=== PATIENT | female | born 1985 | race Caucasian/White ===

== ENCOUNTER 2017-12-04 04:27 | Emergency (ER) | payer SELFPAY ==
[~2017-12-04] VITALS: Ht 152.4 cm; Wt 56.7 kg
--- OUTSIDE RECORDS SUMMARY | 2017-12-04 04:34 | XMS REPORT ---
Author Author VIKTOR OREILLY Organization [facility] Address [address] [place] [address] Care Team Providers Care Induction Heating Equipment Setter Name Role Phone VIKTOR OREILLY Unavailable PROBLEMS Unknown Problems ALLERGIES No Known Allergies ENCOUNTERS Encounter Location Date Diagnosis [facility] [address] [id number] [place] [address] Aug Acute nasopharyngitis J00 IMMUNIZATIONS No Known Immunizations SOCIAL HISTORY Never Assessed REASON FOR VISIT cough, Pt states having this cough for about 5 weeks., Pt coughing so hard it makes her vomit, she even vomited in her sleep. LEONIDAS Rob PLAN OF CARE Activity Details Follow Up prn Reason: VITAL SIGNS Height 61 in 2016-08-30 Weight 126.1 lbs 2016-08-30 Temperature 98.4 degrees Fahrenheit 2016-08-30 Heart Rate 98 bpm 2016-08-30 Respiratory Rate 20 2016-08-30 BMI 23.82 kg/m2 2016-08-30 Blood pressure systolic 120 mmHg 2016-08-30 Blood pressure diastolic 76 mmHg 2016-08-30 MEDICATIONS Medication Instructions Dosage Frequency Start Date End Date Duration Status Tessalon Perles 100 mg Orally Three times a day 1 capsule as needed 8h Aug, Aug, 07 days Active Azithromycin 250 MG Orally Once a day 2 tablets on the first day, then 1 tablet daily for 4 days 24h 5 day(s) Active RESULTS No Results PROCEDURES No Known procedures INSTRUCTIONS MEDICATIONS ADMINISTERED No Known Medications MEDICAL (GENERAL) HISTORY Type Description Date Surgical History section Hospitalization History child
--- OUTSIDE RECORDS SUMMARY | 2017-12-04 04:34 | XMS REPORT | CCD ---
Author Author JOE HUGGINS Organization Unknown Address [address] [address] [place], [place] [address] Care Team Providers Care Ticket Counter Name Role Phone HANDSHY ERLYNNETTE MD Attphys HANDSHY ER, LYNNETTE CAZARES Prisurg Vital Signs Unknown or Not Available. Allergies Allergy Code Allergy Type Reaction Status CELEXA 654544 Drug allergy Active Procedures Procedure Code Procedure Type Date US OB COMP<14 WK SINGLE OR FIRST 038662957 SNOMED CT 03/17 US OB TRANSVAGINAL 968525394 SNOMED CT 03/17/[address] 03/17/2015 TYPE AND Rh 67138045 SNOMED CT 03/17/2015 BETA HCG QUANTITATIVE 427120426 SNOMED CT 03/17/2015 COMPREHENSIVE METABOLIC PANEL 959454765 SNOMED CT 2014 CBC W/ AUTO DIFF (RFLX MAN DIFF IF IND) 8315770 SNOMED CT 03/17/2015 ^CBC W/AUTO DIFF 9187237 SNOMED CT 03/17/2015 History of Immunizations Immunization Code Date DTP 1987 DTP 1987 DTP 09/27/1990 DTP 07/26/1992 OPV 02 1987 OPV 1987 OPV 02 02/28/1988 OPV 02 07/26/1992 MMR 03 09/27/1990 MMR 03 07/26/1992 Td (adult), adsorbed 09 01/15/2003 Tdap 115 02/11/2012 Influenza, seasonal, injectable, preservative free 140 2011 Problems Problem Code Start Date Resolved Date Status FOOTLING BREECH PRESENTATION 307479072 Active SINGLE DELIVERY BY [id number] Active IUGR (INTRAUTERINE GROWTH RETARDATION) 57691018 Active , COMPLICATED 73001 Active SMALL FOR GESTATIONAL AGE 56348 Active Results BETA HCG QUANTITATIVE - Collect Date/Time: 03/17/2015 20:25 Test Name Code Test Result Test Units Test Ref Range BETA HCG QUANT 46858-2 30 MIU/ML COMPREHENSIVE METABOLIC PANEL - Collect Date/Time: 03/17/2015 20:25 Test Name Code Test Result Test Units Test Ref Range GLUCOSE 2345-7 86 MG/DL L=70 H=100 SODIUM 2951-2 140 MEQ/L L=135 H=148 POTASSIUM 2823-3 3.3 MEQ/L L=3.5 H=5.3 CHLORIDE 2075-0 104 MEQ/L L=96 H=110 CO2 2028-9 25 MEQ/L L=22 H=29 BUN 3094-0 8 MG/DL L=8 H=22 CREATININE 2160-0 0.7 MG/DL L=0.6 H=1.6 SGOT/AST 1920-8 29 IU/L L=10 H=40 SGPT/ALT 1742-6 47 IU/L L=8 H=54 ALK PHOS 6768-6 92 IU/L L=35 H=115 TOTAL PROTEIN 2885-2 7.2 G/DL L=5.5 H=8.5 ALBUMIN 1751-7 4.4 G/DL L=3.1 H=5.4 TOTAL BILI 1975-2 0.4 MG/DL L=0.0 H=1.5 CALCIUM 94045-4 9.3 MG/DL L=8.2 H=10.6 AGE 30 yrs GFR NonAA 100 GFR AA 121 eGFR >60 N/A eGFR AA* >60 N/A CBC W/ AUTO DIFF (RFLX MAN DIFF IF IND) - Collect Date/Time: 03/17/2015 20:25 Test Name Code Test Result Test Units Test Ref Range WBC 75210-6 8.3 TH/CMM L=4.5 H=10.8 RBC 789-8 4.39 ML/CMM L=4.20 H=5.40 HGB 718-7 13.2 G/DL L=12.0 H=16.0 HCT 4544-3 39.3 % L=37.0 H=47.0 MCV 90 FL L=81 H=99 MCH 30.1 PG L=27.0 H=33.0 MCHC 33.6 G/DL L=31.0 H=36.0 RDW SD 44 FL L=36 H=50 RDW CV 13.4 % L=0.0 H=14.8 MPV 10.0 FL L=9.3 H=12.5 PLT 777-3 322 TH/CMM L=130 H=440 NRBC# 0.00 TH/CMM L=0.00 H=0.00 NRBC% 0.0 /100WBC L=0.0 H=2.0 %NEUT 52.3 % %LYMP 38.5 % %MONO 6.1 % %EOS 2.9 % %BASO 0.2 % #NEUT 4.35 TH/CMM L=2.10 H=8.20 #LYMP 3.20 TH/CMM L=0.90 H=5.20 #MONO 0.51 TH/CMM L=0.16 H=1.00 #EOS 0.24 TH/CMM L=0.00 H=0.80 #BASO 0.02 TH/CMM L=0.00 H=0.20 MANUAL DIFF NOT IND N/A PT/PTT - Collect Date/Time: 03/17/2015 20:25 Test Name Code Test Result Test Units Test Ref Range PROTIME 40991-8 10.5 SEC L=9.9 H=11.9 INR 1.0 PTT 3173-2 31.1 SEC L=22.2 H=37.2 TYPE AND Rh - Collect Date/Time: 03/17/2015 20:25 Test Name Code Test Result Test Units Test Ref Range ABO/Rh Type O Negative N/A Active Medications Medication Code Dose Units Frequency Route Modification Start Date/Time Ibuprofen 800MG Oral Tablet 011554 800 MG Q8H PO 02/11/2012 08:35 Prescription Detail 800 MG PO Q8H Oxycodone And Acetaminophen 325MG-5MG Oral Tablet 0701819 1 TAB NEEDED EVERY 6 HR PO 02/11/2012 08:35 Prescription Detail 1 TAB PO NEEDED EVERY 6 HR Oral Tablet [id number] 1 EACH DAILY ORAL 02/11/2012 08:35 Prescription Detail 1 EACH ORAL DAILY Medications Administered During Visit Unknown or Not Available. Encounters Encounter Diagnosis Diagnosis Code Start Date Spontaneous without complication [id number] 03/17/2015 Social History Smoking Status Code Start Date End Date Current every day smoker 748148170 Patient Decision Aids Unknown or Not Available. Discharge Instructions You were admitted to [facility] on 03/17[facility]2015 with a principal diagnosis of Spontaneous without complication . You were discharged from [facility] on 03/17/2015. Should you have any questions prior to discharge, please contact a member of your healthcare team. If you have left the hospital and have any questions, please contact your primary care physician. Chief Complaint and Reason For Visit Chief Complaint Date of Onset VAGINAL BLEEDING Function Status Unknown or Not Available. Plan of Care Unknown or Not Available. Referral/Transition of Care Unknown or Not Available.
--- OUTSIDE RECORDS SUMMARY | 2017-12-04 04:35 | XMS REPORT ---
Author Author Juan Joaquin [facility] Address [address] [place], [place] [address] Care Team Providers Care Academic Advising Director Name Role Phone Juan Joaquin PCP Juan Joaquin PreferredProvider Allergies and Adverse Reactions Name Reaction Notes NO KNOWN DRUG ALLERGIES Plan of Treatment Planned Activity Comments Planned Date Planned Time Plan/Goal Liver function panel 11/01/2016 12:00 AM Medications Name Start Date Expiration Date SIG Comments ranitidine HCl 150 mg oral capsule 11/22/2011 06/19/2012 take 1 capsule (150 mg) by oral route 2 times per day for 30 days Mucinex 600 mg oral tablet extended release 12hr 01/04/2012 take 1 tablet (600 mg) by oral route every 12 hours Zithromax Z-Braden 250 mg oral tablet 01/11/2012 01/16/2012 take 2 tablets ( 500 mg) by oral route once daily for 1 day then 1 tablet (250 mg) by oral route once daily for 4 days potassium chloride 20 mEq oral tablet,ER particles/crystals 01/24/20122011 take 1 tablet (20 meq) by oral route once daily with food for 3 days Claritin-D 12 Hour 5-120 mg oral tablet extended release 12 hr 12/27/2013 take 1 tablet by oral route 2 times per day for 15 days Medrol (Braden) 4 mg oral tablets,dose pack 09/12/2017 09/24/2017 take as directed for 6 days Augmentin 875-125 mg oral tablet 09/12/2017 09/19/2017 take 1 tablet by oral route every 12 hours for 7 days Discontinued Name Start Date Discontinued Date SIG Comments TriAdvance 90-1-50 mg oral tablet 07/25/2011 08/23/2011 take 1 tablet by oral route once daily for 30 days Plus 27-1 mg oral tablet 08/23/2011 08/14/2012 take 1 tablet by oral route once daily Tessalon Perles 100 mg oral capsule 01/04/2012 08/14/2012 take 1 capsule ( 100 mg) by oral route every 4 hours as needed Zofran ODT 4 mg oral tablet,disintegrating 01/29/2012 08/14/2012 1 PO q 8 hrs prn nausea Prevacid 15 mg oral capsule,delayed release(DR/EC) 01/30/2012 08/14/2012 take 1 capsule by oral route daily Symbicort 160-4.5 mcg/actuation inhalation HFA aerosol inhaler 09/06/201609/12 inhale 2 puffs by inhalation route 2 times per day in the morning and evening Problem List Description Status Onset Hepatitis C Infection Active Vital Signs Date Time BP-Sys(mm[Hg] BP-Sarah(mm[Hg]) HR(bpm) RR(rpm) Temp WT HT HC BMI BSA BMI Percentile O2 Sat(%) 09/12/2017 9:09:00 AM 110 mmHg 72 mmHg 69 bpm 16 rpm 98.1 F 144 lbs 62 in 26.3377 kg/m 1.6904 m 99 % 11/01/2016 10:14:00 AM 102 mmHg 70 mmHg 96 bpm 18 rpm 97.2 F 121 lbs 62 in 22.13 kg/m2 1.55 m2 100 % 09/06/2016 9:44:00 AM 112 mmHg 72 mmHg 85 bpm 16 rpm 96.5 F 120 lbs 62 in 21.9481 kg/m 1.5431 m 100 % 12/27/2013 1:36:00 PM 100 mmHg 60 mmHg 124 bpm 16 rpm 99.9 F 115 lbs 62 in 21.03 kg/m2 1.51 m2 99 % 10/23/2012 3:18:00 PM 100 mmHg 73 mmHg 72 bpm 20 rpm 97.3 F 135 lbs 62 in 24.6916 kg/m 1.6367 m 98 % 10/10/2012 3:17:00 PM 102 mmHg 74 mmHg 77 bpm 18 rpm 135 lbs 62 in 24.69 kg/m2 1.64 m2 98 % 10/03/2012 3:28:00 PM 100 mmHg 84 mmHg 78 bpm 18 rpm 97.3 F 135 lbs 62 in 24.6916 kg/m 1.6367 m 99 % 09/19/2012 8:08:00 AM 85 bpm 20 rpm 97.2 F 138.6 lbs 62 in 25.35 kg/m2 1.66 m2 97 % 08/14/2012 11:15:00 AM 105 mmHg 68 mmHg 89 bpm 96.6 F 140 lbs 62 in 25.6061 kg/m 1.6667 m 07/25/2011 11:18:00 AM 119 mmHg 70 mmHg 89 bpm 136 lbs 62 in 24.87 kg/m2 1.64 m2 10/07/2010 11:20:00 AM 118 mmHg 60 mmHg 96 bpm 97.7 F 131.375 lbs 98 % 06/27/2010 3:06:00 PM 90 mmHg 60 mmHg 72 bpm 18 rpm 97.8 F 123 lbs 06/22/2010 10:22:00 AM 115 mmHg 70 mmHg 86 bpm 18 rpm 96.7 F 123.5 lbs 100 % 12/31/2009 9:50:00 AM 90 mmHg 68 mmHg 75 bpm 97.3 F 125.25 lbs 99 % 12/03/2009 9:49:00 AM 105 mmHg 60 mmHg 103 bpm 97.9 F 123.125 lbs 100 % 11/30/2009 2:29:00 PM 100 mmHg 60 mmHg 83 bpm 18 rpm 97.81 F 122 lbs 100 % 11/16/2009 8:20:00 AM 110 mmHg 68 mmHg 72 bpm 16 rpm 98 F 124.25 lbs 62 in 22.7254 kg/m 1.5702 m Social History Name Description Comments Single Hx of substance use Former methamphetamines Alcohol Never Tobacco Current every day smoker [facility] History of Procedures Date Ordered Description Order Status 07/31/2011 12:00 AM URINE TEST Reviewed 07/25/2011 12:00 AM CYTOPATH C/V THIN LAYER Reviewed 07/25/2011 12:00 AM SPECIMEN HANDLING OFFICE-LAB Reviewed 07/25/2011 12:00 AM N.GONORRHOEAE DNA AMP PROB Reviewed 07/25/2011 12:00 AM CHLAMYDIA CULTURE Reviewed 07/25/2011 12:00 AM OBSTETRIC PANEL Reviewed 07/25/2011 12:00 AM HIV-1ANTIBODY Reviewed 07/25/2011 12:00 AM URINALYSIS AUTO W/SCOPE Reviewed 07/25/2011 12:00 AM OB US < 14 WKS SINGLE FETUS Reviewed 07/25/2011 12:00 AM HEPATITIS C AB TEST Reviewed 07/25/2011 12:00 AM HEPATITIS C REVRS [id number] Reviewed 07/25/2011 12:00 AM COMPREHEN METABOLIC PANEL Reviewed 07/27/2011 12:00 AM COMPREHEN METABOLIC PANEL Reviewed 07/27/2011 12:00 AM PROTHROMBIN TIME Reviewed 07/27/2011 12:00 AM THROMBOPLASTIN TIME PARTIAL Reviewed 08/02/2011 12:00 AM IRON BINDING TEST Reviewed 08/02/2011 12:00 AM ASSAY OF FERRITIN Reviewed 08/02/2011 12:00 AM ASSAY OF TRANSFERRIN Reviewed 08/02/2011 12:00 AM ASSAY OF IRON Reviewed 08/02/2011 12:00 AM GENOTYPE DNA/RNA HEP C Reviewed 08/02/2011 12:00 AM HEPATITIS A TOTAL ANTIBODY Reviewed 08/02/2011 12:00 AM [id number] TOTAL Reviewed 08/02/2011 12:00 AM ALPHA-FETOPROTEIN SERUM Reviewed 09/07/2011 12:00 AM COMPREHEN METABOLIC PANEL Reviewed 10/09/2011 12:00 AM COMPREHEN METABOLIC PANEL Reviewed 10/09/2011 12:00 AM ALPHA-FETOPROTEIN SERUM Reviewed 10/09/2011 12:00 AM Urine drug screen Reviewed 10/23/2011 12:00 AM OB US >/=14 WKS SNGL FETUS Reviewed 09/06/2016 12:00 AM Rocephin 1 gram Injection Reviewed 09/06/2016 12:00 AM Decadron 8mg Injection Reviewed 09/06/2016 12:00 AM Depo-Medrol 80mg Injection Reviewed 12/01/2011 12:00 AM OB US >/=14 WKS SNGL FETUS Reviewed 11/22/2011 12:00 AM COMPREHEN METABOLIC PANEL Reviewed 12/04/2011 12:00 AM BIOPHYS PROFIL W/O NST Reviewed 12/04/2011 12:00 AM OB US LIMITED FETUS(S) Reviewed 12/04/2011 12:00 AM CMV ANTIBODY Reviewed 12/04/2011 12:00 AM VARICELLA-ZOSTER ANTIBODY Reviewed 12/04/2011 12:00 AM VARICELLA-ZOSTER ANTIBODY Reviewed 12/04/2011 12:00 AM PARVOVIRUS ANTIBODY Reviewed 12/04/2011 12:00 AM Hepatitis C RNA Quantitative Reviewed 12/04/2011 12:00 AM OB US >/=14 WKS SNGL FETUS Reviewed 12/04/2011 12:00 AM BIOPHYS PROFIL W/O NST Reviewed 12/28/2011 12:00 AM BIOPHYS PROFILE W/NST Reviewed 12/28/2011 12:00 AM AMNIOTIC FLUID SCAN Reviewed 01/01/2012 12:00 AM Urine drug screen Reviewed 01/11/2012 12:00 AM OB US >/=14 WKS SNGL FETUS Reviewed 01/11/2012 12:00 AM INFLUENZA A/B AG EIA Reviewed 01/23/2012 12:00 AM COMPREHEN METABOLIC PANEL Reviewed 01/23/2012 12:00 AM HEPATITIS C REVRS TRNSCRPJ Reviewed 02/08/2012 12:00 AM OB US >/=14 WKS SNGL FETUS Reviewed 02/01/2012 12:00 AM COMPREHEN METABOLIC PANEL Reviewed 02/01/2012 12:00 AM LACTATE (LD) (LDH) ENZYME Reviewed 02/01/2012 12:00 AM HIV-1ANTIBODY Reviewed 02/08/2012 12:00 AM CULTURE OTHR SPECIMN AEROBIC Reviewed 07/12/2017 12:00 AM MRI BRAIN STEM W/O & W/DYE Returned 09/12/2017 12:00 AM MRI BRAIN STEM W/O & W/DYE Returned 08/14/2012 12:00 AM CYTOPATH TBS C/V MANUAL Reviewed 08/14/2012 12:00 AM SPECIMEN HANDLING OFFICE-LAB Reviewed 08/14/2012 12:00 AM CHYLMD TRACH DNA AMP PROBE Reviewed 08/14/2012 12:00 AM N.GONORRHOEAE DNA AMP PROB Reviewed 08/14/2012 12:00 AM HIV-1ANTIBODY Reviewed 08/14/2012 12:00 AM SYPHILIS TEST NON-TREP QUAL Reviewed 08/14/2012 12:00 AM HEPATITIS B SURFACE AG EIA Reviewed 08/14/2012 12:00 AM COMPREHEN METABOLIC PANEL Reviewed 08/14/2012 12:00 AM HEPATITIS C REVRS TRNSCRPJ Reviewed 10/10/2012 12:00 AM MUSCLE TEST 2 LIMBS Reviewed 10/10/2012 12:00 AM Wrist Support Reviewed 11/30/2009 12:00 AM OBSTETRIC PANEL Reviewed 11/30/2009 12:00 AM HIV-1ANTIBODY Reviewed 11/30/2009 12:00 AM URINALYSIS NONAUTO W/SCOPE Reviewed 11/30/2009 12:00 AM URINE TEST Reviewed 12/31/2009 12:00 AM CHORIONIC GONADOTROPIN TEST Reviewed 01/03/2010 12:00 AM TRANSVAGINAL US OBSTETRIC Reviewed 06/22/2010 12:00 AM COMPREHEN METABOLIC PANEL Reviewed 06/22/2010 12:00 AM ASSAY OF AMYLASE Reviewed 06/22/2010 12:00 AM ASSAY ALKALINE PHOSPHATASE Reviewed 06/22/2010 12:00 AM COMPLETE CBC W/AUTO DIFF WBC Reviewed 06/27/2010 12:00 AM PROTHROMBIN TIME Reviewed Results Summary Date and Description Results 12/31/2009 10:32 AM BETA HCG QUANT 30810.51 06/22/2010 12:02 PM AMYLASE 34 IU/LWBC 9.5 RBC 4.84 HGB 15.10 g/dLHCT 43.60 % MCV 90.0 fLMCH 31.20 pgMCHC 34.60 g/dLRDW SD 43 RDW CV 12.90 %MPV 11.20 fLPLT 253 NRBC# 0.00 NRBC% 0.0 %NEUT 67.40 %%LYMP 25.90 %%MONO 4.80 %%EOS 1.70 %%BASO 0.20 %#NEUT 6.39 #LYMP 2.45 #MONO 0.45 #EOS 0.16 #BASO 0.02 MANUAL DIFF NOT IND GLUCOSE 105.0 mg/dLSODIUM 139.0 mmol/LPOTASSIUM 3.60 mmol/LCHLORIDE 101.0 mmol/ LCO2 26.0 mmol/LBUN 6.0 mg/dLCREATININE 0.70 mg/dLSGOT/AST 56.0 IU/LSGPT/ALT 112.0 IU/LALK PHOS 101.0 IU/LTOTAL PROTEIN 7.80 g/dLALBUMIN 4.60 g/dLTOTAL BILI 0.60 mg/dLCALCIUM 9.70 mg/dLAGE 25 GFR NonAA 104 GFR AA 126 eGFR >60 mL/min/ 1.73 m2eGFR AA* >60 06/27/2010 3:50 PM PROTIME 10.70 secsINR 1.1 07/25/2011 12:35 PM WBC 8.0 RBC 4.50 HGB 13.60 g/dLHCT 39.30 %MCV 87.0 fLMCH 30.20 pgMCHC 34.60 g/dLRDW SD 42 RDW CV 13.10 %MPV 10.40 fLPLT 239 NRBC# 0.00 NRBC% 0.0 %NEUT 56.30 %%LYMP 35.80 %%MONO 6.50 %%EOS 1.10 %%BASO 0.30 %#NEUT 4.47 #LYMP 2.85 #MONO 0.52 #EOS 0.09 #BASO 0.02 MANUAL DIFF NOT IND COLOR YELLOW APPEARANCE CLEAR SPEC GRAV 1.010 pH 6.5 PROTEIN NEGATIVE GLUCOSE NEGATIVE KETONE NEGATIVE BILIRUBIN NEGATIVE BLOOD NEGATIVE NITRITE NEGATIVE LEUK SCREEN NEGATIVE WBC/HPF NEGATIVE RBC/HPF NEGATIVE CASTS/LPF NEGATIVE CRYSTALS TRACE AMORPH MUCOUS THRDS NEGATIVE BACTERIA NEGATIVE EPITH CELLS NEGATIVE TRICHOMONAS NEGATIVE YEAST NEGATIVE CULT ORDERED YES GLUCOSE 81.0 mg/ dLSODIUM 135.0 mmol/LPOTASSIUM 3.60 mmol/LCHLORIDE 103.0 mmol/LCO2 23.0 mmol/ LBUN 4.0 mg/dLCREATININE 0.60 mg/dLSGOT/AST 69.0 IU/LSGPT/ALT 159.0 IU/LALK PHOS 84.0 IU/LTOTAL PROTEIN 7.30 g/dLALBUMIN 4.30 g/dLTOTAL BILI 0.60 mg/ dLCALCIUM 9.40 mg/dLAGE 26 GFR NonAA 123 GFR AA 149 eGFR 60 eGFR AA* 60 09/07/2011 4:45 PM GLUCOSE 60.0 mg/dLSODIUM 138.0 mmol/LPOTASSIUM 3.60 mmol/ LCHLORIDE 104.0 mmol/LCO2 21.0 mmol/LBUN 5.0 mg/dLCREATININE 0.50 mg/dLSGOT/AST 27.0 IU/LSGPT/ALT 46.0 IU/LALK PHOS 77.0 IU/LTOTAL PROTEIN 7.0 g/dLALBUMIN 4.0 g /dLTOTAL BILI 0.30 mg/dLCALCIUM 9.20 mg/dLAGE 26 GFR NonAA 152 GFR AA 184 eGFR 60 eGFR AA* 60 10/09/2011 2:56 PM GLUCOSE 82.0 mg/dLSODIUM 137.0 mmol/LPOTASSIUM 3.90 mmol/ LCHLORIDE 106.0 mmol/LCO2 21.0 mmol/LBUN 3.0 mg/dLCREATININE 0.50 mg/dLSGOT/AST 20.0 IU/LSGPT/ALT 24.0 IU/LALK PHOS 66.0 IU/LTOTAL PROTEIN 6.50 g/dLALBUMIN 3.50 g/dLTOTAL BILI 0.30 mg/dLCALCIUM 8.70 mg/dLAGE 26 GFR NonAA 152 GFR AA 184 eGFR 60 eGFR AA* 60 11/22/2011 10:48 AM GLUCOSE 122.0 mg/dLSODIUM 137.0 mmol/LPOTASSIUM 3.50 mmol/ LCHLORIDE 107.0 mmol/LCO2 21.0 mmol/LBUN 4.0 mg/dLCREATININE 0.50 mg/dLSGOT/AST 15.0 IU/LSGPT/ALT 15.0 IU/LALK PHOS 83.0 IU/LTOTAL PROTEIN 5.60 g/dLALBUMIN 3.10 g/dLTOTAL BILI 0.20 mg/dLCALCIUM 8.60 mg/dLAGE 26 GFR NonAA 152 GFR AA 184 eGFR 60 eGFR AA* 60 01/11/2012 5:10 PM INFLUENZA A & B NO INFLUENZA A OR B DETECTED 01/23/2012 3:06 PM GLUCOSE 142.0 mg/dLSODIUM 136.0 mmol/LPOTASSIUM 3.20 mmol/ LCHLORIDE 108.0 mmol/LCO2 20.0 mmol/LBUN 3.0 mg/dLCREATININE 0.50 mg/dLSGOT/AST 20.0 IU/LSGPT/ALT 24.0 IU/LALK PHOS 127.0 IU/LTOTAL PROTEIN 5.60 g/dLALBUMIN 3.0 g/dLTOTAL BILI 0.20 mg/dLCALCIUM 8.30 mg/dLAGE 26 GFR NonAA 152 GFR AA 184 eGFR 60 eGFR AA* 60 02/01/2012 11:55 AM GLUCOSE 75.0 mg/dLSODIUM 139.0 mmol/LPOTASSIUM 3.70 mmol/ LCHLORIDE 107.0 mmol/LCO2 24.0 mmol/LBUN 4.0 mg/dLCREATININE 0.50 mg/dLSGOT/AST 21.0 IU/LSGPT/ALT 24.0 IU/LALK PHOS 137.0 IU/LTOTAL PROTEIN 6.10 g/dLALBUMIN 3.10 g/dLTOTAL BILI 0.20 mg/dLCALCIUM 8.60 mg/dLAGE 26 GFR NonAA 152 GFR AA 184 eGFR 60 eGFR AA* 60 LDH 148.0 IU/L 08/14/2012 12:38 PM HIV AG/AB COMBO 0.19 GLUCOSE 70.0 mg/dLSODIUM 141.0 mmol/ LPOTASSIUM 4.10 mmol/LCHLORIDE 106.0 mmol/LCO2 22.0 mmol/LBUN 8.0 mg/ dLCREATININE 0.80 mg/dLSGOT/AST 32.0 IU/LSGPT/ALT 86.0 IU/LALK PHOS 101.0 IU/ LTOTAL PROTEIN 7.60 g/dLALBUMIN 4.40 g/dLTOTAL BILI 0.80 mg/dLCALCIUM 10.20 mg/ dLAGE 27 GFR NonAA 87 GFR AA 105 eGFR 60 eGFR AA* 60 History Of Immunizations Name Date Admin Mfg Name Mfg Code Trade Name Lot# Route Inj Vis Given Vis Pub CVX Tdap 02/11/2012 Not Entered NE Not Entered Not Entered Not Entered 03/26/2017 999 History of Past Illness Name Date of Onset Comments Hepatitis C Infection Hepatitis C Infection Nov 16 2009 8:21AM test confirmed positive Nov 30 2009 2:51PM Hepatitis C Infection Nov 16 2009 9:56AM Hepatitis C Infection Dec 03 2009 10:04AM , High Risk Dec 31 2009 9:57AM , Complete Jan 03 2010 5:08PM Abdominal Pain Jun 22 2010 10:24AM Hepatitis C Infection Jun 22 2010 10:24AM pre-operative examination, unspecified Jun 27 2010 3:15PM Hepatitis C, chronic Jun 27 2010 3:07PM Abnormal liver function test Jun 27 2010 3:07PM , High Risk Oct 07 2010 11:26AM Vaginal Bleeding Oct 07 2010 11:26AM test confirmed positive Jul 25 2011 11:30AM Hepatitis C Infection Jul 25 2011 11:30AM Hepatitis C Infection Jul 27 2011 3:59PM Hepatitis C Infection Aug 02 2011 9:35AM Care, High Risk Sep 07 2011 4:40PM Hepatitis C Infection Oct 09 2011 2:20PM Tobacco Abuse Oct 09 2011 2:54PM , High Risk Oct 18 2011 11:23AM Uterine size date discrepancy; antepartum condition or complication Nov 22 2011 10:14AM Care, High Risk Nov 22 2011 10:14AM Hepatitis C Infection Nov 22 2011 10:14AM Small For Dates, Antepartum Dec 04 2011 11:06AM Care, High Risk Dec 04 2011 11:34AM Intrauterine Growth Retardation Dec 04 2011 11:34AM Intrauterine Growth Retardation Dec 04 2011 2:01PM Care, High Risk Dec 04 2011 2:01PM , High Risk Dec 25 2011 1:47PM Small For Dates, Antepartum Dec 25 2011 1:47PM Tobacco use disorder complicating , childbirth, or the puerperium; antepartum condition or complication Jan 01 2012 3:06PM Small For Dates, Antepartum Jan 01 2012 4:00PM Care, High Risk Jan 11 2012 4:50PM Cough Jan 11 2012 4:50PM Personal history of other diseases; other genital system and obstetric disorders; personal history of pre-term labor Jan 23 2012 2:54PM Hepatitis C Infection Jan 23 2012 2:54PM Intrauterine Growth Retardation Feb 01 2012 11:50AM Care, High Risk Feb 01 2012 11:50AM Hepatitis C Infection Feb 01 2012 11:50AM Group B Strep Screening, Feb 08 2012 10:02AM Gynecological Exam Aug 14 2012 11:24AM Hepatitis C Infection Aug 14 2012 11:24AM Bilateral Wrist pain Sep 19 2012 8:13AM Repetitive Use Injury Sep 19 2012 8:13AM Bilateral Wrist pain Oct 03 2012 3:33PM Repetitive Use Injury Oct 03 2012 3:33PM Bilateral Wrist pain Oct 10 2012 3:21PM Repetitive Use Injury Oct 10 2012 3:21PM Bilateral Wrist pain Oct 23 2012 3:22PM Repetitive Use Injury Oct 23 2012 3:22PM Frontal Sinusitis, Acute Dec 27 2013 1:36PM Bronchitis Sep 06 2016 9:46AM Hepatitis C Sep 06 2016 9:46AM STD exposure Nov 01 2016 10:25AM Hepatitis C Nov 01 2016 12:40PM Headache Jul 12 2017 11:45AM Optic neuritis Jul 12 2017 11:45AM Optic neuritis Sep 12 2017 9:14AM NELSON (headache) Sep 12 2017 9:14AM Payers Insurance Name Company Name Plan Name Plan Number Policy Number Policy Group Number Start Date [facility] Financial Assistance [facility] Financial [place] 50percent N/A [employer] - CMFHP [employer] -CMFHP [id number] N/A [employer] - RHC - CMFHP [employer] - C - CMFHP [id number] N/A [employer] - RHC - CMFHP [employer] - RHC - CMFHP [id number] N/A [place] [employer] [facility] [place] [employer] [id number] N/A [employer] - [place] State [place] [employer] - [place] [id number] N/A [facility] [id number] N/A History of Encounters Visit Date Visit Type Provider 09/12/2017 Office visit Juan Joaquin MD 11/01/2016 Office visit Juan Joaquin MD 09/06/2016 Office visit Juan Joaquin MD 12/27/2013 Office visit Nba Aiken PA-C 10/23/2012 Office visit Barbara Bateman COPIER TECHNICIAN 10/10/2012 Office visit Barbara Bateman COPIER TECHNICIAN 10/03/2012 Office visit Barbara Bateman COPIER TECHNICIAN 09/19/2012 Office visit Barbara Bateman COPIER TECHNICIAN 08/14/2012 Office visit Harshil Hinton MD 02/08/2012 Hospital Tavia Servin MD 02/08/2012 [facility] Harshil Hinton MD 02/08/2012 Office visit Harshil Hinton MD 02/06/2012 [facility] Harshil Hinton MD 02/01/2012 Office visit Harshil Hinton MD 01/23/2012 Office visit Harshil Hinton MD 01/11/2012 Office visit Harshil Hinton MD 01/01/2012 Office visit Harshil Hinton MD 12/11/2011 [facility] Tavia Servin MD 12/04/2011 Office visit Harshil Hinton MD 11/22/2011 Office visit Harshil Hinton MD 11/22/2011 Office visit Harshil Hinton MD 10/18/2011 Office visit Harshil Hinton MD 10/09/2011 Office visit Harshil Hinton MD 09/07/2011 Office visit Harshil Hinton MD 08/09/2011 Office visit Harshil Hinton MD 07/25/2011 Office visit Harshil Hinton MD 10/07/2010 Office visit Les Velasquez MD 06/27/2010 Office visit Filippo Jimenez MD 06/22/2010 Office visit Les Velasquez MD 01/03/2010 Office visit Tavia Servin MD 12/31/2009 Office visit Les Velasquez MD 12/03/2009 Office visit Les Velasquez MD 11/30/2009 Office visit Les Velasquez MD 11/16/2009 Office visit Les Velasquez MD 11/16/2009 Office visit Rachel RYDER 12/29/2008 Office visit Jona Alvarado DO
--- OUTSIDE RECORDS SUMMARY | 2017-12-04 04:36 | XMS REPORT ---
Author Author Juan Joaquin [facility] Address [address] [place], [place] [address] Care Team Providers Care Press Service Reader Name Role Phone Juan Joaquin PCP Juan Joaquin PreferredProvider Allergies and Adverse Reactions Name Reaction Notes NO KNOWN DRUG ALLERGIES Plan of Treatment Planned Activity Comments Planned Date Planned Time Plan/Goal Liver function panel 11/01/2016 12:00 AM Medications Active Name Start Date Estimated Completion Date SIG Comments Symbicort 160-4.5 mcg/actuation inhalation HFA aerosol inhaler 09/06/2016 inhale 2 puffs by inhalation route 2 times per day in the morning and evening Name Start Date Expiration Date SIG Comments [...] 2 times per day for 15 days Discontinued Name Start Date Discontinued Date [...] take 1 capsule by oral route daily Problem List Description Status Onset Hepatitis C Infection Active Vital Signs Date Time BP-Sys(mm[Hg] BP-Sarah(mm[Hg]) HR(bpm) RR(rpm) Temp WT HT HC BMI BSA BMI Percentile O2 Sat(%) 11/01/2016 10:14:00 AM 102 mmHg 70 mmHg 96 bpm 18 rpm 97.2 F 121 lbs 62 in 22.131 kg/m 1.5495 m 100 % 09/06/2016 9:44:00 AM 112 mmHg 72 mmHg 85 bpm 16 rpm 96.5 F 120 lbs 62 in 21.95 kg/m2 1.54 m2 100 % 12/27/2013 1:36:00 PM 100 mmHg 60 mmHg 124 bpm 16 rpm 99.9 F 115 lbs 62 in 21.0336 kg/m 1.5106 m 99 % 10/23/2012 3:18:00 PM 100 mmHg 73 mmHg 72 bpm 20 rpm 97.3 F 135 lbs 62 in 24.69 kg/m2 1.64 m2 98 % 10/10/2012 3:17:00 PM 102 mmHg [...] Alcohol Never Tobacco Current every day smoker [facility] History of Procedures Date Ordered Description Order [...] A TOTAL ANTIBODY Reviewed 08/02/2011 12:00 AM [id number] TOTAL Reviewed 08/02/2011 12:00 AM ALPHA-FETOPROTEIN SERUM [...] 12:00 AM CULTURE OTHR SPECIMN AEROBIC Reviewed 08/14/2012 12:00 AM CYTOPATH TBS C/V MANUAL [...] Results 12/31/2009 10:32 AM BETA HCG QUANT 25661.51 06/22/2010 12:02 PM AMYLASE 34 IU/LWBC 9.5 [...] 10:25AM Hepatitis C Nov 01 2016 12:40PM Payers Insurance Name Company Name Plan Name Plan Number Policy Number Policy Group Number Start Date [facility] Financial Assistance [facility] Financial [place] 50percent N/A zzzCoventry - CMFHP Coventry -CMFHP [id number] N/A zzzCoventry - RHC - CMFHP Coventry - RHC - CMFHP [id number] N/A zzzCoventry - RHC - CMFHP Coventry - RHC - CMFHP [id number] N/A [place] [facility] [place] [facility] [place] Prog [id number] N/A [employer] - [place] [employer] [place] [id number] N/A [employer] [id number] N/A History of Encounters Visit Date Visit Type Provider 11/01/2016 Office visit Juan Joaquin MD 09/06/2016 Office visit Juan Joaquin MD 12/27/2013 Office visit Nba Aiken PA-C 10/23/2012 Office visit Barbara Bateman DRY CLEANING CHECKER 10/10/2012 Office visit Barbara Bateman DRY CLEANING CHECKER 10/03/2012 Office visit Barbara Bateman DRY CLEANING CHECKER 09/19/2012 Office visit Barbara Bateman DRY CLEANING CHECKER 08/14/2012 Office visit Harshil Hinton MD 02/08/2012 [facility] Tavia Servin MD 02/08/2012 [facility] Harshil Hinton MD 02/08/2012 Office visit Harshil Hinton MD 02/06/2012 Hospital Harshil Hinton MD 02/01/2012 Office visit Harshil Hinton MD 01/23/2012 Office visit Harshil Hinton MD 01/11/2012 Office visit Harshil Hinton MD 01/01/2012 Office visit Harshil Hinton MD 12/11/2011 [facility] Tavia Servin MD 12/04/2011 Office visit [...]
--- OUTSIDE RECORDS SUMMARY | 2017-12-04 04:37 | XMS REPORT ---
Author Author Juan Joaquin [facility] Address [address] [place], [place] [phone] Care Team Providers Care Pack Train Driver Name Role Phone Juan Joaquin PCP Juan Joaquin PreferredProvider Allergies and Adverse Reactions Name Reaction Notes NO KNOWN DRUG ALLERGIES Plan of Treatment Planned Activity Comments Planned Date Planned Time Plan/Goal Liver function panel 11/01/2016 12:00 AM Magnetic resonance imaging of brain and brainstem without then with contrast 07/12/2017 12:00 AM Medications Active Name Start Date [...] Alcohol Never Tobacco Current every day smoker [facility] History of Procedures Date Ordered Description Order [...] A TOTAL ANTIBODY Reviewed 08/02/2011 12:00 AM [id number] TOTAL Reviewed 08/02/2011 12:00 AM ALPHA-FETOPROTEIN SERUM [...] Results 12/31/2009 10:32 AM BETA HCG QUANT 55443.51 06/22/2010 12:02 PM AMYLASE 34 IU/LWBC 9.5 RBC 4.84 HGB 15.10 g/dLHCT 43.60 % MCV 90.0 fLMCH 31.20 pgHC 34.60 g/dLRDW SD 43 RDW CV 12.90 [...] 4.50 HGB 13.60 g/dLHCT 39.30 %MCV 87.0 [facility] 30.20 pgHC 34.60 g/dLRDW SD 42 RDW CV 13.10 [...] 11:45AM Optic neuritis Jul 12 2017 11:45AM Payers Insurance Name Company Name Plan Name Plan Number Policy Number Policy Group Number Start Date [facility] Financial Assistance [facility] Financial [place] 50percent N/A zzzCoventry - CMFHP Coventry -CMFHP [id number] N/A zzzCoventry - RHC - CMFHP Coventry - RHC - CMFHP [id number] N/A zzzCoventry - RHC - CMFHP Coventry - RHC - CMFHP [id number] N/A [place] [facility] [place] [facility] [employer] Prog [id number] N/A [employer] [place] [employer] [place] [id number] N/A [employer] [id number] N/A History of Encounters Visit Date Visit Type Provider 11/01/2016 Office visit Juan Joaquin MD 09/06/2016 Office visit Juan Joaquin MD 12/27/2013 Office visit Nba Aiken PA-C 10/23/2012 Office visit Barbara Bateman FLIGHT TEST DATA ACQUISITION TECHNICIAN 10/10/2012 Office visit Barbara Bateman FLIGHT TEST DATA ACQUISITION TECHNICIAN 10/03/2012 Office visit Barbara Bateman FLIGHT TEST DATA ACQUISITION TECHNICIAN 09/19/2012 Office visit Barbara Bateman FLIGHT TEST DATA ACQUISITION TECHNICIAN 08/14/2012 Office visit Harshil Hinton MD 02/08/2012 [facility] Tavia Servin MD 02/08/2012 [facility] Harshil Hinton MD 02/08/2012 Office visit Harshil Hinton MD 02/06/2012 [facility] Harshil Hinton MD 02/01/2012 Office visit Harshil Hinton MD 01/23/2012 Office visit Harshil Hinton MD 01/11/2012 Office visit Harshil Hinton MD 01/01/2012 Office visit Harshil Hinton MD 12/11/2011 [facility] Tavia Servin MD 12/04/2011 Office visit Harshil Hinton MD 11/22/2011 Office visit Harshil Hinton MD 11/22/2011 Office visit Harshil Hinton MD 10/18/2011 Office visit Hrashil Hinton MD 10/09/2011 Office visit Harshil Hinton [...]
--- OUTSIDE RECORDS SUMMARY | 2017-12-04 04:37 | XMS REPORT ---
Author Author Juan Joaquin [facility] Address [address] [place], [place] [address] Care Team Providers Care Ferry Captain Name Role Phone Juan Joaquin PCP Unavailable Juan Joaquin PreferredProvider Unavailable Allergies and Adverse Reactions Name Reaction Notes [...] Alcohol Never Tobacco Current every day smoker [facility] History of Procedures Date Ordered Description Order [...] A TOTAL ANTIBODY Reviewed 08/02/2011 12:00 AM [id number] TOTAL Reviewed 08/02/2011 12:00 AM ALPHA-FETOPROTEIN SERUM [...] Results 12/31/2009 10:32 AM BETA HCG QUANT 27217.51 06/22/2010 12:02 PM AMYLASE 34 IU/LWBC 9.5 [...] NE Not Entered Not Entered Not Entered 03/26/2016 999 History of Past Illness Name Date [...] Policy Number Policy Group Number Start Date [facility] Financial Assistance [facility] Financial [place] 50percent N/A zzzCoventry - CMFHP Coventry -CMFHP [id number] N/A zzzCoventry - RHC - CMFHP Coventry - RHC - CMFHP [id number] N/A zzzCoventry - RHC - CMFHP Coventry - RHC - CMFHP [id number] N/A [place] [facility] [place] [facility] [place] [facility] [place] Pro[place] [id number] N/A [employer] [place] [employer] [place] [id number] N/A [employer] [id number] N/A History of Encounters Visit Date Visit Type Provider 11/01/2016 Office visit Juan Joaquin MD 09/06/2016 Office visit Juan Joaquin MD 12/27/2013 Office visit Nba Aiken PA-C 10/23/2012 Office visit Barbara Bateman MARBLE INSTALLATION HELPER 10/10/2012 Office visit Barbara Bateman MARBLE INSTALLATION HELPER 10/03/2012 Office visit Barbara Bateman MARBLE INSTALLATION HELPER 09/19/2012 Office visit Barbara Bateman MARBLE INSTALLATION HELPER 08/14/2012 Office visit Harshil Hinton MD 02/08/2012 [facility] Tavia Servin MD 02/08/2012 [facility] Harshil Hinton MD 02/08/2012 Office visit Harshil Hinton MD 02/06/2012 [facility] Harshil Hinton MD 02/01/2012 Office visit Harshil Hinton MD 01/23/2012 Office visit Harshil Hinton MD 01/11/2012 Office visit Harshil Hinton MD 01/01/2012 Office visit Harshil Hinton MD 12/11/2011 [facility] Tavia Servin MD 12/04/2011 Office visit Harshil Hinton MD 11/22/2011 Office visit Harshil Hinton MD 11/22/2011 Office visit Harshil Hinton MD 10/18/2011 Office visit Harshil Hinton MD 10/09/2011 Office visit Harshil Hinton MD 09/07/2011 Office visit Harshil Hinton MD 08/09/2011 Office visit Harshil Hinton MD 07/25/2011 Office visit Harshil Hinton MD 10/07/2010 Office visit Les Velasquez MD 06/27/2010 Office visit Filipop Jimenez MD 06/22/2010 Office visit Les Velasquez MD 01/03/2010 Office visit Tavia Servin MD 12/31/2009 Office visit Les Velasquez MD 12/03/2009 Office visit Les Velasquez MD 11/30/2009 Office visit Les Velasquez MD 11/16/2009 Office visit Les Velasquez MD 11/16/2009 Office visit Rachel RYDER 12/29/2008 Office visit Jona Alvarado DO
--- OUTSIDE RECORDS SUMMARY | 2017-12-04 04:38 | XMS REPORT ---
Author Author Juan Joaquin [facility] Address [address] [place], [place] [address] Care Team Providers Care Electric Spot Welder Name Role Phone Juan Joaquin PCP Unavailable [...] Alcohol Never Tobacco Current every day smoker [facility] History of Procedures Date Ordered Description [...] A TOTAL ANTIBODY Reviewed 08/02/2011 12:00 AM [id number] TOTAL Reviewed 08/02/2011 12:00 AM ALPHA-FETOPROTEIN SERUM [...] Reviewed Results Summary Date and Description Results 12/30/2009 12:23 PM BETA HCG QUANT 11845.40 12/31/2009 10:32 AM BETA HCG QUANT 94839.51 12/31/2009 6:48 PM US OB COMP<14 WK SINGLE OR FIRST [facility] US OB COMP< 14 WK SINGLE OR FIRST SHI IBANEZ [id number] US OB COMP<14 WK SINGLE OR FIRST Diagnostic Imaging Report US OB COMP<14 WK SINGLE OR FIRST Name: ROJELIO RAYMOND US OB COMP<14 WK SINGLE OR FIRST Patient#: [id number] Room US OB COMP<14 WK SINGLE OR FIRST Stay Type: O/P MR#: US OB COMP<14 WK SINGLE OR FIRST Admit Date: 12/31/2009 Disc US OB COMP<14 WK SINGLE OR FIRST Date of : 1984 Age: US OB COMP<14 WK SINGLE OR FIRST Telephone#: X - US OB COMP<14 WK SINGLE OR FIRST Financial Class: P Orde US OB COMP<14 WK SINGLE OR FIRST Report Location: US OB COMP<14 WK SINGLE OR FIRST Admitting Physician: NICHOL ACOSTA MD US OB COMP<14 WK SINGLE OR FIRST Ordering Physician: NICHOL ACOSTA MD US OB COMP<14 WK SINGLE OR FIRST Family Physician: US OB COMP<14 WK SINGLE OR FIRST Pilot Boat Captain Date/Time: 12/31/2009 18:53 [place] US OB COMP<14 WK SINGLE OR FIRST Unsigned Transcriptions are preliminary reports US OB COMP<14 WK SINGLE OR FIRST represent a Medical or Legal Document US OB COMP<14 WK SINGLE OR FIRST US OB COMP<14 WK SINGLE OR FIRST [id number] COMPLE US OB COMP< 14 WK SINGLE OR FIRST REASON FOR PROCEDURE: check for fht trauma to ab US OB COMP<14 WK SINGLE OR FIRST Transabdominal and transvaginal pelvic ultrasound US OB COMP<14 WK SINGLE OR FIRST Indication: Early , possible complicatio US OB COMP<14 WK SINGLE OR FIRST Findings: A single intrauterine gestational sac i US OB COMP<14 WK SINGLE OR FIRST contour and is somewhat small appearance. The david US OB COMP<14 WK SINGLE OR FIRST an estimated age of 6 weeks 3 days. The decidual US OB COMP<14 WK SINGLE OR FIRST it should be. The yolk sac is very large, measuri US OB COMP<14 WK SINGLE OR FIRST visualized , but no cardiac activity is evident. Th US OB COMP<14 WK SINGLE OR FIRST estimated age of 6 weeks 1 day. US OB COMP<14 WK SINGLE OR FIRST Impression: Findings compatible with nonviable in US OB COMP<14 WK SINGLE OR FIRST tones are visualized. Recommend follow-up and cli US OB COMP<[address] Mclain notified by Dr. Parkinson at Noon on day US OB COMP<14 WK SINGLE OR FIRST Dictating: Josh Gary M.D. US OB COMP<14 WK SINGLE OR FIRST Reviewed and Electronically Signed by: Josh Haq US OB COMP<14 WK SINGLE OR FIRST Signed Date/Time: 12/31/2009 18:53 US OB COMP<14 WK SINGLE OR FIRST Page 1 12/31/2009 6:53 PM US OB TRANSVAGINAL [facility] OB TRANSVAGINAL [place] [address] US OB TRANSVAGINAL Diagnostic Imaging Report US OB TRANSVAGINAL Name: ROJELIO RAYMOND US OB TRANSVAGINAL Patient#: [id number] Room US OB TRANSVAGINAL Stay Type: O/P MR#: US OB TRANSVAGINAL Admit Date: 12/31/2009 Disc US OB TRANSVAGINAL Date of : 1985 Age: US OB TRANSVAGINAL Telephone#: X - US OB TRANSVAGINAL Financial Class: P Orde US OB TRANSVAGINAL Report Location: US OB TRANSVAGINAL Admitting Physician: NICHOL ACOSTA MD US OB TRANSVAGINAL Ordering Physician: NICHOL ACOSTA MD US OB TRANSVAGINAL Family Physician: US OB TRANSVAGINAL Pilot Boat Captain Date/Time: 2009 18:53 Espinosa US OB TRANSVAGINAL represent a Medical or Legal Document US OB TRANSVAGINAL US OB TRANSVAGINAL [id number] COMPLETE: 12/31/2009 US OB TRANSVAGINAL REASON FOR PROCEDURE: ob for fht and abd trauma US OB TRANSVAGINAL Transabdominal and transvaginal pelvic ultrasound US OB TRANSVAGINAL Indication: Early , possible complicatio US OB TRANSVAGINAL Findings: A single intrauterine gestational sac i US OB TRANSVAGINAL contour and is somewhat small appearance. The david US OB TRANSVAGINAL an estimated age of 6 weeks 3 days. The decidual US OB TRANSVAGINAL it should be. The yolk sac is very large, measuri US OB TRANSVAGINAL visualized, but no cardiac activity is evident. Th US OB TRANSVAGINAL estimated age of 6 weeks 1 day. US OB TRANSVAGINAL Impression: Findings compatible with nonviable in US OB TRANSVAGINAL tones are visualized. Recommend follow-up and cli US OB TRANSVAGINAL Dr. Mclain notified by Dr. Parkinson at Noon on day US OB TRANSVAGINAL Dictating: Josh Gary M.D. OB TRANSVAGINAL Reviewed and Electronically Signed by: Josh Haq OB TRANSVAGINAL Signed Date/Time: 12/31/2009 18:53 US OB TRANSVAGINAL Page 1 06/22/2010 12:02 PM AMYLASE 34 IU/LWBC 9.5 [...] AA 149 eGFR 60 eGFR AA* 60 ABO/Rh Type O Negative Antibody Screen-Gel Negative RUBELLA 10.0 IU/mL 09/07/2011 4:45 PM GLUCOSE 60.0 mg/dLSODIUM 138.0 [...] AA 184 eGFR 60 eGFR AA* 60 12/11/2011 5:30 PM WBC 12.3 RBC 3.54 HGB 10.80 g/dLHCT 32.10 %MCV 91.0 fLMCH 30.50 pgMCHC 33.60 g/dLRDW SD 44 RDW CV 13.40 %MPV 10.60 fLPLT 208 NRBC# 0.00 NRBC% 0.0 %NEUT 72.70 %%LYMP 21.20 %%MONO 4.80 %%EOS 1.10 %%BASO 0.20 %#NEUT 8.98 #LYMP 2.62 #MONO 0.59 #EOS 0.13 #BASO 0.02 MANUAL DIFF NOT IND Product Identification Rh Immune Globulin 12/11/2011 5:35 PM ABO/Rh Type O Negative Antibody Screen-Gel Negative 01/11/2012 5:10 PM INFLUENZA A & B NO INFLUENZA A OR B DETECTED 01/23/2012 3:06 PM GLUCOSE 142.0 mg/dLSODIUM 136.0 mmol/LPOTASSIUM 3.20 mmol/ LCHLORIDE 108.0 mmol/LCO2 20.0 mmol/LBUN 3.0 mg/dLCREATININE 0.50 mg/dLSGOT/AST 20.0 IU/LSGPT/ALT 24.0 IU/LALK PHOS 127.0 IU/LTOTAL PROTEIN 5.60 g/dLALBUMIN 3.0 g/dLTOTAL BILI 0.20 mg/dLCALCIUM 8.30 mg/dLAGE 24 GFR NonAA 152 GFR AA 184 eGFR 60 eGFR AA* 60 01/29/2012 7:50 PM COLOR YELLOW APPEARANCE CLEAR SPEC GRAV 1.020 pH 7.0 PROTEIN NEGATIVE GLUCOSE NEGATIVE KETONE 40 BILIRUBIN NEGATIVE BLOOD NEGATIVE NITRITE NEGATIVE LEUK SCREEN NEGATIVE WBC/HPF 0-5 RBC/HPF RARE CASTS/LPF NEGATIVE CRYSTALS TRACE CA OX MUCOUS THRDS FEW BACTERIA 1+ EPITH CELLS 2++ SQUAMOUS TRICHOMONAS NEGATIVE YEAST NEGATIVE CULT SET UP? NO 01/29/2012 8:25 PM GLUCOSE 96.0 mg/dLSODIUM 134.0 mmol/LPOTASSIUM 3.20 mmol/ LCHLORIDE 104.0 mmol/LCO2 19.0 mmol/LBUN 6.0 mg/dLCREATININE 0.50 mg/dLSGOT/AST 23.0 IU/LSGPT/ALT 19.0 IU/LALK PHOS 142.0 IU/LTOTAL PROTEIN 5.70 g/dLALBUMIN 2.90 g/dLTOTAL BILI 0.50 mg/dLCALCIUM 8.50 mg/dLAGE 26 GFR NonAA 152 GFR AA 184 eGFR 60 eGFR AA* 60 02/01/2012 11:55 AM GLUCOSE 75.0 mg/dLSODIUM 139.0 mmol/LPOTASSIUM 3.70 mmol/ LCHLORIDE 107.0 mmol/LCO2 24.0 mmol/LBUN 4.0 mg/dLCREATININE 0.50 mg/dLSGOT/AST 21.0 IU/LSGPT/ALT 24.0 IU/LALK PHOS 137.0 IU/LTOTAL PROTEIN 6.10 g/dLALBUMIN 3.10 g/dLTOTAL BILI 0.20 mg/dLCALCIUM 8.60 mg/dLAGE 24 GFR NonAA 152 GFR AA 184 eGFR 60 eGFR AA* 60 LDH 148.0 IU/LHIV AG/AB COMBO 0.11 08/14/2012 12:38 PM HIV AG/AB COMBO 0.19 [...] Policy Number Policy Group Number Start Date [facility] Financial Assistance [facility] Financial [place] 50percent N/A zzz[employer] - CMFHP Cov[employer] -CMFHP [id number] N/A zzz[employer] - RHC - CMFHP [employer] - RHC - CMFHP [id number] N/A zzz[employer] - RHC - CMFHP [employer] - RHC - CMFHP [id number] N/A [place] [facility] [employer] [facility] [place] [facility] [place] Pro[place] [id number] N/A [employer] [place] [employer] [place] [id number] N/A [employer] [id number] N/A History of Encounters Visit Date Visit Type Provider 11/01/2016 Office visit Juan Joaquin MD 09/06/2016 Office visit Juan Joaquin MD 12/27/2013 Office visit Nba Aiken PA-C 10/23/2012 Office visit Barbara Bateman WEATHER ANALYST 10/10/2012 Office visit Barbara Bateman WEATHER ANALYST 10/03/2012 Office visit Barbara Bateman WEATHER ANALYST 09/19/2012 Office visit Barbara Bateman WEATHER ANALYST 08/14/2012 Office visit Harshil Hinton MD 02/08/2012 [facility] Tavia Servin MD 02/08/2012 [facility] Harshil Hinton MD 02/08/2012 Office visit Harshil Hinton MD 02/06/2012 [facility] Harshil Hinton MD 02/01/2012 Office visit Harshil Hinton MD 01/23/2012 Office visit Harshil Hinton MD 01/11/2012 Office visit Harshil Hinton MD 01/01/2012 Office visit Harshil Hinton MD 12/11/2011 [facility] Tavia Servin MD 12/04/2011 Office visit Harshil Hinton MD 11/22/2011 Office visit Harshil Hinton MD 11/22/2011 Office visit Harshil Hinton MD 10/18/2011 Office visit Harshil Hinton MD 10/09/2011 Office visit Harshil Hinton MD 09/07/2011 Office visit Harshil Hinton MD 08/09/2011 Office visit Harshil Hinton MD 07/25/2011 Office visit Harshil Hinton MD 10/07/2010 Office visit Nichol Acosta MD 06/27/2010 Office visit Filippo Jimenez MD 06/22/2010 Office visit Nichol Acosta MD 01/03/2010 Office visit Tavia Servin MD 12/31/2009 Office visit Nichol Acosta MD 12/03/2009 Office visit Nichol Acosta MD 11/30/2009 Office visit Nichol Acosta MD 11/16/2009 Office visit Nichol Acosta MD 11/16/2009 Office visit Rachel RYDER 12/29/2008 Office visit Jona Alvarado DO
--- OUTSIDE RECORDS SUMMARY | 2017-12-04 04:39 | XMS REPORT ---
Author Author Juan Joaquin [facility] Address [address] [place], [place] [address] Care Team Providers Care Aquatic Laborer Name Role Phone Juan Joaquin PCP Juan Joaquin PreferredProvider Allergies and Adverse Reactions Name Reaction Notes NO KNOWN DRUG ALLERGIES Plan of Treatment Planned Activity Comments Planned Date Planned Time Plan/Goal Liver function panel 11/01/2016 12:00 AM MRI BRAIN INC STEM W/WO CONTRAST 09/12/2017 12:00 AM Medications Active Name Start Date Estimated Completion Date SIG Comments Medrol (Braden) 4 mg oral tablets,dose pack 09/12/2017 09/24/2017 take as directed for 6 days Name Start Date Expiration Date SIG Comments [...] 2 times per day for 15 days Augmentin 875-125 mg oral tablet 09/12/2017 [...] bpm 136 lbs 62 in 24.87 kg/m2 1.6427 m 10/07/2010 11:20:00 AM 118 mmHg 60 mmHg [...] Alcohol Never Tobacco Current every day smoker [facility] History of Procedures Date Ordered Description Order [...] A TOTAL ANTIBODY Reviewed 08/02/2011 12:00 AM [id number] TOTAL Reviewed 08/02/2011 12:00 AM ALPHA-FETOPROTEIN SERUM [...] Results 12/31/2009 10:32 AM BETA HCG QUANT 03114.51 06/22/2010 12:02 PM AMYLASE 34 IU/LWBC 9.5 [...] Policy Number Policy Group Number Start Date [facility] Financial Assistance [facility] Financial [place] 50percent N/A zzzCoventry - CMFHP Coventry -CMFHP [id number] N/A zzzC[employer] - RHC - CMFHP [employer] - RHC - CMFHP [id number] N/A [employer]zz[employer] - RHC - CMFHP [employer] - RHC - CMFHP [id number] N/A [place] [facility] [employer] Program [place] [employer] Pro[place] [id number] N/A [employer] - [place] [employer] [place] [id number] N/A [employer] [id number] N/A History of Encounters Visit Date Visit Type Provider 09/12/2017 Office visit Juan Joaquin MD 11/01/2016 Office visit Juan Joaquin MD 09/06/2016 Office visit Juan Joaquin MD 12/27/2013 Office visit Nba Aiken PA-C 10/23/2012 Office visit Barbara Bateman GILL BOX OPERATOR 10/10/2012 Office visit Barbara Bateman GILL BOX OPERATOR 10/03/2012 Office visit Barbara Bateman GILL BOX OPERATOR 09/19/2012 Office visit Barbara Bateman GILL BOX OPERATOR 08/14/2012 Office visit Harshil Hinton MD 02/08/2012 Hospital Tavia Servin MD 02/08/2012 [facility] Harshil Hinton MD 02/08/2012 Office visit Harshil Hinton MD 02/06/2012 [facility] Harshil Hinton MD 02/01/2012 Office visit Harshil Hinton MD 01/23/2012 Office visit Harshil Hinton MD 01/11/2012 Office visit Harshil Hinton MD 01/01/2012 Office visit Harshil Hinton MD 12/11/2011 [facility] Tavia Servin MD 12/04/2011 Office visit [...]
--- OUTSIDE RECORDS SUMMARY | 2017-12-04 04:40 | XMS REPORT ---
Author Author Juan Joaquin [facility] Address [address] [place], [place] [address] Care Team Providers Care Day Care Center Director Name Role Phone Juan Joaquin PCP [...] route every 12 hours for 7 days Name Start Date Expiration Date SIG [...] Alcohol Never Tobacco Current every day smoker [facility] History of Procedures Date Ordered Description [...] A TOTAL ANTIBODY Reviewed 08/02/2011 12:00 AM [id number] TOTAL Reviewed 08/02/2011 12:00 AM ALPHA-FETOPROTEIN SERUM [...] Results 12/31/2009 10:32 AM BETA HCG QUANT 89851.51 06/22/2010 12:02 PM AMYLASE 34 IU/LWBC 9.5 [...] Policy Number Policy Group Number Start Date [facility] Financial Assistance [facility] Financial [place] 50percent N/A zzzCoventry - CMFHP Coventry -CMFHP [id number] N/A zzz[employer] - RHC - CMFHP [employer] - RHC - CMFHP [id number] N/A zzz[employer] - RHC - CMFHP [employer] - RHC - CMFHP [id number] N/A [place] [facility] [employer] Program [place] [employer] Pro[place] [id number] N/A [employer] [place] [employer] [place] [id number] N/A [employer] [id number] N/A History of Encounters Visit Date Visit Type Provider 09/12/2017 Office visit Juan Joaquin MD 11/01/2016 Office visit Juan Joaquin MD 09/06/2016 Office visit Juan Joaquin MD 12/27/2013 Office visit Nba Aiken PA-C 10/23/2012 Office visit Barbara Bateman CORRECTIONAL FACILITY PSYCHIATRIST 10/10/2012 Office visit Barbara Bateman CORRECTIONAL FACILITY PSYCHIATRIST 10/03/2012 Office visit Barbara Bateman CORRECTIONAL FACILITY PSYCHIATRIST 09/19/2012 Office visit Barbara Bateman CORRECTIONAL FACILITY PSYCHIATRIST 08/14/2012 Office visit Harshil Hinton MD 02/08/2012 Hospital Tavia Servin MD 02/08/2012 [facility] Harshil Hinton MD 02/08/2012 Office visit Harshil Hinton MD 02/06/2012 [facility] Harshil Hinton MD 02/01/2012 Office visit Harshil Hinton MD 01/23/2012 Office visit Harshil Hinton MD 01/11/2012 Office visit Harshil Hinton MD 01/01/2012 Office visit Harshil Hinton MD 12/11/2011 [facility] Tavia Servin MD 12/04/2011 Office [...]
--- OUTSIDE RECORDS SUMMARY | 2017-12-04 04:41 | XMS REPORT ---
Author Author Juan Joaquin [facility] Address [address] [place], [place] [id number] Care Team Providers Care Shield Cleaner Name Role Phone Juan Joaquin PCP Juan [...] Alcohol Never Tobacco Current every day smoker [facility] History of Procedures Date Ordered Description Order [...] A TOTAL ANTIBODY Reviewed 08/02/2011 12:00 AM [id number] TOTAL Reviewed 08/02/2011 12:00 AM ALPHA-FETOPROTEIN SERUM [...] Results 12/31/2009 10:32 AM BETA HCG QUANT 07116.51 06/22/2010 12:02 PM AMYLASE 34 IU/LWBC 9.5 [...] 4.50 HGB 13.60 g/dLHCT 39.30 %MCV 87.0 [facility] 30.20 pgHC 34.60 g/dLRDW SD 42 [...] Policy Number Policy Group Number Start Date [facility] Financial Assistance [facility] Financial [place] 50percent N/A zzzCoventry - CMFHP Coventry -CMFHP [id number] N/A zzzCoventry - RHC - CMFHP Coventry - RHC - CMFHP [id number] N/A zzzCoventry - RHC - CMFHP Coventry - RHC - CMFHP [id number] N/A [place] [facility] [employer] [facility] [place] [facility] [employer] Prog [id number] N/A [employer] - [place] Amer[employer] - [place] [id number] N/A [email or web address] [id number] N/A History of Encounters Visit Date Visit Type Provider 11/01/2016 Office visit Juan Joaquin MD 09/06/2016 Office visit Juan Joaquin MD 12/27/2013 Office visit Nba Aiken PA-C 10/23/2012 Office visit Barbara Bateman HEAVY REPAIRER 10/10/2012 Office visit Barbara Bateman HEAVY REPAIRER 10/03/2012 Office visit Barbara Bateman HEAVY REPAIRER 09/19/2012 Office visit Barbara Bateman HEAVY REPAIRER 08/14/2012 Office visit Harshil Hinton MD 02/08/2012 [facility] Tavia Servin MD 02/08/2012 [facility] Harshil Hinton MD 02/08/2012 Office visit Harshil Hinton MD 02/06/2012 [facility] Harshil Hinton MD 02/01/2012 Office visit Harshil Hinton MD 01/23/2012 Office visit Harshil Hinton MD 01/11/2012 Office visit Harshil Hinton MD 01/01/2012 Office visit Harshil Hinton MD 12/11/2011 [facility] Tavia Servin MD 12/04/2011 Office [...]
--- OUTSIDE RECORDS SUMMARY | 2017-12-04 04:42 | XMS REPORT ---
Author Author Juan Joaquin [facility] Address [address] [place], [place] [id number] Care Team Providers Care Manager In Training Name Role Phone Juan Joaquin PCP Juan [...] bpm 18 rpm 135 lbs 62 in 24.6916 kg/m 1.6367 m 98 % 10/03/2012 3:28:00 PM 100 mmHg 84 mmHg 78 bpm 18 rpm 97.3 F 135 lbs 62 in 24.69 kg/m2 1.64 m2 99 % 09/19/2012 8:08:00 AM 85 bpm 20 rpm 97.2 F 138.6 lbs 62 in 25.35 kg/m 1.6584 m 97 % 08/14/2012 11:15:00 AM 105 mmHg 68 mmHg 89 bpm 96.6 F 140 lbs 62 in 25.61 kg/m2 1.67 m2 07/25/2011 11:18:00 AM 119 mmHg 70 mmHg 89 bpm 136 lbs 62 in 24.8745 kg/m 1.6427 m 10/07/2010 11:20:00 AM 118 mmHg [...] Alcohol Never Tobacco Current every day smoker [facility] History of Procedures Date Ordered Description Order [...] A TOTAL ANTIBODY Reviewed 08/02/2011 12:00 AM [id number] TOTAL Reviewed 08/02/2011 12:00 AM ALPHA-FETOPROTEIN SERUM [...] Results 12/31/2009 10:32 AM BETA HCG QUANT 09852.51 06/22/2010 12:02 PM AMYLASE 34 IU/LWBC 9.5 [...] Policy Number Policy Group Number Start Date [facility] Financial Assistance [facility] Financial [place] 50percent N/A zzzCoventry - CMFHP Coventry -CMFHP [id number] N/A zzzCoventry - RHC - CMFHP Coventry - RHC - CMFHP [id number] N/A zzzCoventry - RHC - CMFHP Coventry - RHC - CMFHP [id number] N/A [place] [facility] [place] [facility] [place] Prog [id number] N/A [employer] [place] [employer] [place] [id number] N/A [place] [employer] [id number] N/A History of Encounters Visit Date Visit Type Provider 11/01/2016 Office visit Juan Joaquin MD 09/06/2016 Office visit Juan Joaquin MD 12/27/2013 Office visit Nba Aiken PA-C 10/23/2012 Office visit Barbara Bateman CAMERA REPAIR TECHNICIAN 10/10/2012 Office visit Barbara Bateman CAMERA REPAIR TECHNICIAN 10/03/2012 Office visit Barbara Bateman CAMERA REPAIR TECHNICIAN 09/19/2012 Office visit Barbara Bateman CAMERA REPAIR TECHNICIAN 08/14/2012 Office visit Harshil Hinton MD 02/08/2012 [facility] Tavia Servin MD 02/08/2012 [facility] Harshil Hinton MD 02/08/2012 Office visit Harshil Hinton MD 02/06/2012 Hospital Harshil Hinton MD 02/01/2012 Office visit Harshil Hinton MD 01/23/2012 Office visit Harshil Hinton MD 01/11/2012 Office visit Harshil Hinton MD 01/01/2012 Office visit Harshil Hinton MD 12/11/2011 [facility] Tavia Servin MD 12/04/2011 Office [...]
--- OUTSIDE RECORDS SUMMARY | 2017-12-04 04:43 | XMS REPORT ---
Author Author Juan Joaquin [facility] Address [address] [place], [place] [address] Care Team Providers Care Group Counselor Name Role Phone Juan Joaquin PCP Unavailable Juan Joaquin PreferredProvider Unavailable Allergies and Adverse Reactions Name Reaction Notes NO KNOWN DRUG ALLERGIES Plan of Treatment Not available. Medications Active Name Start Date Estimated Completion [...] Alcohol Never Tobacco Current every day smoker [place] [employer] History of Procedures Date Ordered Description Order [...] A TOTAL ANTIBODY Reviewed 08/02/2011 12:00 AM [id number] TOTAL Reviewed 08/02/2011 12:00 AM ALPHA-FETOPROTEIN SERUM [...] Results 12/30/2009 12:23 PM BETA HCG QUANT 52689.40 12/31/2009 10:32 AM BETA HCG QUANT 07011.51 12/31/2009 6:48 PM US OB COMP<14 WK SINGLE OR FIRST [facility] US OB COMP< 14 WK SINGLE OR FIRST [place] [address] US OB COMP<14 WK SINGLE OR FIRST Diagnostic Imaging Report US OB COMP<14 WK SINGLE OR FIRST Name: NURY RAYMONDN Herbert US OB COMP<14 WK SINGLE OR FIRST Patient#: [id number] Room US OB COMP<14 WK SINGLE OR FIRST Stay Type: O/P MR#: US OB COMP<14 WK SINGLE OR FIRST Admit Date: 12/31/2009 Disc US OB COMP<14 WK SINGLE OR FIRST Date of : 1984 Age: US OB COMP<14 WK SINGLE OR FIRST Telephone#: [phone] X - US OB COMP<14 WK SINGLE OR FIRST Financial Class: P Orde US OB COMP<14 WK SINGLE OR FIRST Report Location: US OB COMP<14 WK SINGLE OR FIRST Admitting Physician: NICHOL ACOSTA MD US OB COMP<14 WK SINGLE OR FIRST Ordering Physician: NICHOL ACOSTA MD US OB COMP<14 WK SINGLE OR FIRST Family Physician: US OB COMP<14 WK SINGLE OR FIRST Finish Repair Worker Date/Time: 12/31/2009 18:53 [place] US OB COMP<14 WK SINGLE OR FIRST Unsigned Transcriptions are preliminary reports US OB COMP<14 WK SINGLE OR FIRST represent a Medical or Legal Document US OB COMP<14 WK SINGLE OR FIRST US OB COMP<14 WK SINGLE OR FIRST 51001 COMPLE US OB COMP< 14 WK SINGLE [...] 1 12/31/2009 6:53 PM US OB TRANSVAGINAL [facility] OB TRANSVAGINAL [place] [address] US OB TRANSVAGINAL Diagnostic Imaging Report US OB TRANSVAGINAL Name: ROJELIO RAYMOND US OB TRANSVAGINAL Patient#: [id number] Room US OB TRANSVAGINAL Stay Type: O/P [...] OB TRANSVAGINAL Family Physician: US OB TRANSVAGINAL Finish Repair Worker Date/Time: 2009 18:53 [place] US OB TRANSVAGINAL represent a Medical or Legal Document US OB TRANSVAGINAL US OB TRANSVAGINAL [id number] COMPLETE: 12/31/2009 US OB TRANSVAGINAL REASON FOR [...] 9:46AM STD exposure Nov 01 2016 10:25AM Payers Insurance Name Company Name Plan Name Plan Number Policy Number Policy Group Number Start Date [facility] Financial Assistance [facility] Financial [place] 50percent N/A zzzCoventry - CMFHP Coventry -CMFHP [id number] N/A zzzCoventry - RHC - CMFHP Coventry - RHC - CMFHP [id number] N/A zzzCoventry - RHC - CMFHP Coventry - RHC - CMFHP [id number] N/A [place] [employer] [place] [employer] Prog [id number] N/[place] [employer] [place] [employer] [place] [id number] N/A [employer] [id number] N/A History of Encounters Visit Date Visit Type Provider 11/01/2016 Office visit Juan Joaquin MD 09/06/2016 Office visit Juan Joaquin MD 12/27/2013 Office visit Nba Aiken PA-C 10/23/2012 Office visit Barbara Bateman EPITAXIAL REACTOR OPERATOR 10/10/2012 Office visit Barbara Bateman EPITAXIAL REACTOR OPERATOR 10/03/2012 Office visit Barbara Bateman EPITAXIAL REACTOR OPERATOR 09/19/2012 Office visit Barbara Bateman EPITAXIAL REACTOR OPERATOR 08/14/2012 Office visit Harshil Hinton MD 02/08/2012 [facility] Tavia Servin MD 02/08/2012 [facility] Harshil Hinton MD 02/08/2012 Office visit Harshil Hinton MD 02/06/2012 [facility] Harshil Hinton MD 02/01/2012 Office visit Harshil Hinton MD 01/23/2012 Office visit Harshil Hinton MD 01/11/2012 Office visit Harshil Hinton MD 01/01/2012 Office visit Harshil Hinton MD 12/11/2011 [facility] Tavia Servin MD 12/04/2011 Office visit [...] Tavia Servin MD 12/31/2009 Office visit Nichol Aocsta MD 12/03/2009 Office visit Nichol Acosta MD 11/30/2009 Office visit Nichol Acosta MD 11/16/2009 Office visit Nichol Acosta MD 11/16/2009 Office visit Rachel RYDER 12/29/2008 Office visit Jona Alvarado DO
--- OUTSIDE RECORDS SUMMARY | 2017-12-04 04:44 | XMS REPORT ---
Author Author Juan Joaquin [facility] Address [address] [place], [place] [address] Care Team Providers Care Hand I Tube Bender Name Role Phone Juan Joaquin PCP Unavailable [...] Alcohol Never Tobacco Current every day smoker [place] [employer] History of Procedures Date Ordered Description Order [...] A TOTAL ANTIBODY Reviewed 08/02/2011 12:00 AM [id number] TOTAL Reviewed 08/02/2011 12:00 AM ALPHA-FETOPROTEIN SERUM [...] Results 12/30/2009 12:23 PM BETA HCG QUANT 92382.40 12/31/2009 10:32 AM BETA HCG QUANT 31019.51 12/31/2009 6:48 PM US OB COMP<14 WK SINGLE OR FIRST [facility] US OB COMP< 14 WK SINGLE OR FIRST [place] [address] US OB COMP<14 WK SINGLE OR FIRST Diagnostic Imaging Report US OB COMP<14 WK SINGLE OR FIRST Name: NURY RAYMONDN Herbert US OB COMP<14 WK SINGLE OR FIRST Patient#: [id number] Room US OB COMP<14 WK SINGLE OR [...] US OB COMP<14 WK SINGLE OR FIRST Mine Boss Date/Time: 12/31/2009 18:53 [place] US OB COMP<14 WK SINGLE OR FIRST Unsigned Transcriptions are preliminary reports US OB COMP<14 WK SINGLE OR FIRST represent a Medical or Legal Document US OB COMP<14 WK SINGLE OR FIRST US OB COMP<14 WK SINGLE OR FIRST [address] COMPLE US OB COMP< 14 WK SINGLE [...] 1 12/31/2009 6:53 PM US OB TRANSVAGINAL [facility] OB TRANSVAGINAL [place] [address] US OB TRANSVAGINAL Diagnostic Imaging Report US OB TRANSVAGINAL Name: ROJELIO RAYMOND US OB TRANSVAGINAL Patient#: [id number] Room US OB TRANSVAGINAL Stay Type: O/P [...] OB TRANSVAGINAL Family Physician: US OB TRANSVAGINAL Mine Boss Date/Time: 2009 18:53 [place] US OB TRANSVAGINAL represent a Medical or Legal Document US OB TRANSVAGINAL US OB TRANSVAGINAL [id number] COMPLETE: 12/31/2009 US OB TRANSVAGINAL REASON FOR [...] Policy Number Policy Group Number Start Date [facility] Financial Assistance [facility] Financial [place] 50percent N/A zzzCoventry - CMFHP Coventry -CMFHP [id number] N/A zzzCoventry - RHC - CMFHP Coventry - RHC - CMFHP [id number] N/A zzzCoventry - RHC - CMFHP Coventry - RHC - CMFHP [id number] N/A [place] [employer] [place] [employer] [place] Prog [id number] N/A [employer] [place] [employer] [place] [id number] N/A [employer] [id number] N/A History of Encounters Visit Date Visit Type Provider 11/01/2016 Office visit Juan Joaquin MD 09/06/2016 Office visit Juan Joaquin MD 12/27/2013 Office visit Nba Aiken PA-C 10/23/2012 Office visit Barbara Bateman PIT SHOVELER 10/10/2012 Office visit Barbara Bateman PIT SHOVELER 10/03/2012 Office visit Barbara Bateman PIT SHOVELER 09/19/2012 Office visit Barbara Bateman PIT SHOVELER 08/14/2012 Office visit Harshil Hinton MD 02/08/2012 [facility] Tavia Servin MD 02/08/2012 [facility] Harshil Hinton MD 02/08/2012 Office visit Harshil Hinton MD 02/06/2012 [facility] Harshil Hinton MD 02/01/2012 Office visit Harshil Hinton MD 01/23/2012 Office visit Harshil Hinton MD 01/11/2012 Office visit Harshil Hinton MD 01/01/2012 Office visit Harshil Hinton MD 12/11/2011 [facility] Tavia Servin MD 12/04/2011 Office visit [...]
--- OUTSIDE RECORDS SUMMARY | 2017-12-04 04:47 | XMS REPORT ---
Author Author Juan Joaquin [facility] Address [address] [place], [place] [address] Care Team Providers Care Alcohol Still Operator Name Role Phone Juan Joaquin PCP Unavailable [...] HC BMI BSA BMI Percentile O2 Sat(%) 09/06/2016 9:44:00 AM 112 mmHg 72 mmHg [...] rpm 98 F 124.25 lbs 62 in 22.73 kg/m2 1.57 m2 Social History Name Description Comments Single Hx of substance use Former methamphetamines Alcohol Never Tobacco Current every day smoker [place] [employer] History of Procedures Date Ordered Description Order [...] A TOTAL ANTIBODY Reviewed 08/02/2011 12:00 AM [id number] TOTAL Reviewed 08/02/2011 12:00 AM ALPHA-FETOPROTEIN SERUM Reviewed 09/07/2011 12:00 AM COMPREHEN METABOLIC PANEL Reviewed 10/09/2011 12:00 AM COMPREHEN METABOLIC PANEL Reviewed 10/09/2011 12:00 AM ALPHA-FETOPROTEIN SERUM Reviewed 10/09/2011 12:00 AM Urine drug screen Reviewed 10/23/2011 12:00 AM OB US >/=14 WKS SNGL FETUS Reviewed 12/01/2011 12:00 AM OB US >/=14 [...] Results 12/30/2009 12:23 PM BETA HCG QUANT 15513.40 12/31/2009 10:32 AM BETA HCG QUANT 29508.51 12/31/2009 6:48 PM US OB COMP<14 WK SINGLE OR FIRST [facility] OB COMP< 14 WK SINGLE OR FIRST [place] [address] US OB COMP<14 WK SINGLE OR FIRST Diagnostic Imaging Report US OB COMP<14 WK SINGLE OR FIRST Name: ROJELIO RAYMOND US OB COMP<14 WK SINGLE OR FIRST Patient#: [id number] Room US OB COMP<14 WK SINGLE OR FIRST Stay Type: O/P MR#: US OB COMP<14 WK SINGLE OR FIRST Admit Date: 12/31/2009 Disc US OB COMP<14 WK SINGLE OR FIRST Date of : 1984 Age: US OB COMP<14 WK SINGLE OR FIRST Telephone#: [phone] X - US OB COMP<14 WK SINGLE OR FIRST Financial Class: P Orde US OB COMP<14 WK SINGLE OR FIRST Report Location: US OB COMP<14 WK SINGLE OR FIRST Admitting Physician: NICHOL ACOSTA MD US OB COMP<14 WK SINGLE OR FIRST Ordering Physician: NICHOL ACOSTA MD US OB COMP<14 WK SINGLE OR FIRST Family Physician: US OB COMP<14 WK SINGLE OR FIRST Sheriff Sergeant Date/Time: 12/31/2009 18:53 [place]spin[place] US OB COMP<14 WK SINGLE OR FIRST Unsigned Transcriptions are preliminary reports US OB COMP<14 WK SINGLE OR FIRST represent a Medical or Legal Document US OB COMP<14 WK SINGLE OR FIRST US OB COMP<14 WK SINGLE OR FIRST [address] COMPLE US OB COMP< 14 WK SINGLE [...] 1 12/31/2009 6:53 PM US OB TRANSVAGINAL [facility] [address] US OB TRANSVAGINAL Diagnostic Imaging Report US OB TRANSVAGINAL Name: ROJELIO RAYMOND US OB TRANSVAGINAL Patient#: [id number] Room US OB TRANSVAGINAL Stay Type: O/P MR#: US OB TRANSVAGINAL Admit Date: 12/31/2009 Disc US OB TRANSVAGINAL Date of : 1985 Age: US OB TRANSVAGINAL Telephone#: [phone] US OB TRANSVAGINAL Financial Class: P Orde US OB TRANSVAGINAL Report Location: US OB TRANSVAGINAL Admitting Physician: INCHOL ACOSTA MD US OB TRANSVAGINAL Ordering Physician: NICHOL ACOSTA MD OB TRANSVAGINAL Family Physician: OB TRANSVAGINAL Sheriff Sergeant Date/Time: 2009 18:53 [place]spin[place] US OB TRANSVAGINAL represent a Medical or Legal Document US OB TRANSVAGINAL US OB TRANSVAGINAL [id number] COMPLETE: 12/31/2009 US OB TRANSVAGINAL REASON FOR [...] US OB TRANSVAGINAL Dictating: Josh Gary M.D. US OB TRANSVAGINAL Reviewed and Electronically Signed by: Josh Haq US OB TRANSVAGINAL Signed Date/Time: 12/31/2009 18:53 US [...] 9:46AM Hepatitis C Sep 06 2016 9:46AM Payers Insurance Name Company Name Plan Name Plan Number Policy Number Policy Group Number Start Date [facility] Financial Assistance [facility] Financial [place] 50percent N/A zzzCoventry - CMFHP Coventry -CMFHP [id number] N/A zzzCoventry - RHC - CMFHP [employer] - RHC - CMFHP [id number] N/A zzzCoventry - RHC - CMFHP Cov[employer] - RHC - CMFHP [id number] N/A [place] Medical Assistance Program [place] [employer] Prog [id number] N/A [employer] [place] [employer] [place] [id number] N/A [employer] [id number] N/A History of Encounters Visit Date Visit Type Provider 09/06/2016 Office visit Juan Joaquin MD 12/27/2013 Office visit Nba Aiken PA-C 10/23/2012 Office visit Barbara Bateman RESTAURANT MGR 10/10/2012 Office visit Barbara Bateman RESTAURANT MGR 10/03/2012 Office visit Barbara Bateman RESTAURANT MGR 09/19/2012 Office visit Barbara Bateman RESTAURANT MGR 08/14/2012 Office visit Harshil Hinton MD 02/08/2012 [facility] Tavia Servin MD 02/08/2012 [facility] Harshil Hinton MD 02/08/2012 Office visit Harshil Hinton MD 02/06/2012 [facility] Harshil Hinton MD 02/01/2012 Office visit Harshil Hinton MD 01/23/2012 Office visit Harshil Hinton MD 01/11/2012 Office visit Harshil Hinton MD 01/01/2012 Office visit Harshil Hinton MD 12/11/2011 [facility] Tavia Servin MD 12/04/2011 Office visit [...]
--- OUTSIDE RECORDS SUMMARY | 2017-12-04 04:47 | XMS REPORT | Continuity of Care Document ---
Author Author [facility] Organization [facility] Address Unknown Phone Unavailable Allergies Active Description Code Type Severity Reaction Onset Reported/Identified Relationship to Patient Clinical Status Yes CELEXA [id number] BRANDNAME N/A N/A Yes No Known Allergies Drug Allergy 12/11/2011 Yes No Known Drug Allergies Drug Allergy 12/11/2011 Yes No Known Food Allergies Food Allergy 12/11/2011 Medications There is no data. Problems Date Dx Coded Attending Type Code Diagnosis Diagnosed By 12/11/2011 Mariela CAZARES, Filippo Celaya Final 656.53 POOR GROWTH-AP 07/13/2017 S H469 Unspecified optic neuritis 07/13/2017 P R51 Headache Procedures There is no data. Results There is no data. Encounters ACCT No. Visit Date/Time Discharge Status Pt. Type Provider Facility Loc./Unit Complaint [id number] 09/12/2017 12:33:02 09/12/2017 23:59:59 CLS Outpatient Juan Joaquin [id number] 11/01/2016 10:48:16 11/01/2016 23:59:59 CLS Outpatient Juan Joaquin [id number] 09/06/2016 10:38:15 09/06/2016 23:59:59 CLS Outpatient Juan Joaquin [id number] 12/27/2013 14:32:32 12/27/2013 23:59:59 CLS Outpatient Nba Aiken [id number] 07/09/2017 09:45:00 07/09/2017 23:59:59 CLS Outpatient MALKA CHAVEZ DO [facility] [id number] 12/11/2011 21:15:00 12/13/2011 17:45:00 DIS Outpatient Mariela CAZARES, Filippo Celaya [facility] [address] [id number] 09/12/2017 11:09:03 Document Registration [id number] 07/11/2017 09:40:49 Document Registration
--- NOTE | 2017-12-04 05:26 | ED EENT ---
History of Present Illness General Chief Complaint: Oral/Throat Problems Stated Complaint: BLOODY NOSE Nursing Triage Note: AMBULATORY TO ED WITH C/O NOSE BLEED THAT STARTED AFTER THROWING UP AT APPROX [phone] THIS AM. STATES SHE HAS HAD FEVER, CHILLS, COUGH, AND SORE THROAT SINCE LAST SUNDAY. NOSE BLEED HAS STOPPED AT TIME OF TRIAGE. Source: patient History of Present Illness Date Seen by Provider: Dec 04, 2017 Time Seen by Provider: 05:10 Initial Comments PT ARRIVES VIA POV FROM HOME C/O SORE THROAT SINCE Sunday11/30/17 AND IS GETTING WORSE EVERY DAY C/O NON-PRODUCTIVE COUGH AND CONGESTION ALSO SINCE SUNDAY HAS HAD FEVER UP TO 101 THE LAST 2 NIGHTS STATES AROUND 0345, SHE BLEW HER NOSE, THEN STARTED COUGHING AND GAGGING AND THREW UP AND THEN HER NOSE STARTED BLEEDING AND "WOULDN'T STOP" --HAS STOPPED PRIOR TO ARRIVAL HAS NOT TAKEN ANYTHING FOR SYMPTOMS NO HISTORY OF NOSEBLEEDS LMP 11/07/17. NORMAL, NO CONTROL PCP: SHAMAR SHARPE. Allergies and Home Medications Allergies Coded Allergies: No Known Drug Allergies (Unverified , 12/04/17) Home Medications Amoxicillin/Potassium Clav 1 Each Tablet, 1 EACH PO BID Prescribed by: HAILY WANG on 12/04/17531 Benzonatate 100 Mg Capsule, 1-2 TAB PO TID Prescribed by: HAILY WANG on 12/04/17531 Fluticasone Propionate 9.9 Ml Hitchcock.susp, 2 SPRAYS NS BID Prescribed by: HAILY WANG on 12/04/17531 Loratadine/Pseudoephedrine 1 Each Tab.er.12h, 1 EACH PO BID Prescribed by: HAILY WANG on 12/04/17531 Patient Home Medication List Home Medication List Reviewed: Yes Review of Systems Review of Systems Constitutional: see HPI, chills, fever Eyes: No Symptoms Reported Ears: No Symptoms Reported Nose: see HPI, congestion, epistaxis Mouth: no symptoms reported Throat: see HPI, pain, painful swallowing; denies difficulty with fluids Respiratory: cough; No phlegm, No short of breath, No wheezing Cardiovascular: no symptoms reported Gastrointestinal: see HPI, vomiting : No LMP: Nov 07, 2017 Musculoskeletal: no symptoms reported Skin: no symptoms reported Neurological: No Symptoms Reported Hematologic/Lymphatic: No Symptoms Reported Immunological/Allergic: no symptoms reported Past Aopjsse-Mjkhum-Jxkazi Hx Patient Social History Alcohol Use: Denies Use Recreational Drug Use: No Smoking Status: Current Everyday Smoker (1 PPD) Type Used: Cigarettes Recent Foreign Travel: No Contact w/Someone Who Travel: No Recent Infectious Disease Expo: No Recent Hopitalizations: No Immunizations Up To Date Tetanus Booster (TDap): Unknown Seasonal Allergies Seasonal Allergies: No Past Medical History Surgeries: Yes ( X 1 ) Section Respiratory: No Cardiac: No Neurological: No : No Last Menstrual Period: Nov 07, 2017 Reproductive Disorders: No Genitourinary: No Gastrointestinal: No Musculoskeletal: No Endocrine: No HEENT: No Cancer: No Psychosocial: No Integumentary: No Blood Disorders: No Physical Exam Vital Signs Vital Signs - First Documented 12/04/17 12/04/17 04:59 06:08 Temp 98.8 Pulse 105 Resp 19 B/P (MAP) 108/58 (75) Pulse Ox 100 Height, Weight, BMI Height: 5'0" Weight: 125lbs. oz. 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 NO BLOOD IN NARES OR IN POSTERIOR PHARYNX) Mouth/Throat: normal mouth inspection; No tonsillar exudate, No tonsillar swelling, No trismus, No uvula swelling, No voice changes; other (PHARYNGEAL ERYTHEMA. NO EXUDATE OR EVIDENCE OF PERITONSILLAR ABSCESS) Neck: non-tender, full range of motion, supple, normal inspection Cardiovascular: regular rate, rhythm, no edema, no murmur Respiratory: normal breath sounds, no respiratory distress, no accessory muscle use Gastrointestinal: non tender, soft Neurologic/Psychiatric: rn surgery II-XII nml as tested, no motor/sensory deficits, alert, normal mood/affect, oriented x 3 Skin: normal color, warm/dry Progress/Results/Core Measures Results/Orders Lab Results Laboratory Tests Test 12/04/17 05:11 Range/Units Group A Streptococcus Screen NEGATIVE NEGATIVE My Orders Orders - HAILY WANG DO Rapid Strep A Screen (12/04/17 05:20) Urine Bedside (12/04/17 05:20) Vital Signs/I&O 12/04/17 12/04/17 04:59 06:08 Temp 98.8 98.8 Pulse 105 105 Resp 19 19 B/P (MAP) 108/58 (75) 108/58 (75) Pulse Ox 100 Blood Pressure Mean: 75 Departure Impression Primary Impression: Upper respiratory infection Additional Impression: EPISTAXIS RESOLVED Disposition: 01 HOME, SELF-CARE Condition: Stable Departure-Patient Inst. Referrals: NO,LOCAL PHYSICIAN (PCP/Family) Primary Care Physician Patient Instructions: Bacterial Upper Respiratory Infection, Adult (DC), Nosebleeds (DC) Add. Discharge Instructions: DO NOT PICK OR BLOW NOSE TYLENOL AND MOTRIN NEEDED FOR PAIN OR FEVER LOTS OF CLEAR LIQUIDS FOLLOW UP WITH DR. VALENCIA IN 3-4 DAYS IF NO BETTER All discharge instructions reviewed with patient and/or family. Voiced understanding. Scripts Benzonatate (Tessalon Perle) 100 Mg Capsule 1-2 TAB PO TID for Cough, #30 CAP Prov: HAILY WANG DO 12/04/17 Fluticasone Propionate (Flonase Allergy Relief) 9.9 Ml Hitchcock.susp 2 SPRAYS NS BID, #1 SPRAY Prov: HAILY WANG DO 12/04/17 Loratadine/Pseudoephedrine (Claritin-D 12 Hour Tablet) 1 Each Tab.er.12h 1 EACH PO BID, #20 TAB Prov: HAILY WANG DO 12/04/17 Amoxicillin/Potassium Clav (Augmentin 875-125 Tablet) 1 Each Tablet 1 EACH PO BID for INFECTION, #20 TAB Prov: HAILY WANG DO 12/04/17 HAILY WANG DO Dec 04, 2017 05:26
[2017-12-04] MEDS ORDERED: AMOX-358 PO (05:32)
[2017-12-04] MEDS ORDERED: BENZ100C18 PO (05:32)
[2017-12-04] MEDS ORDERED: FLUT9.9S NS (05:32)
[2017-12-04] MEDS ORDERED: LORA1TAB59 PO (05:32)
[2017-12-04 06:08] VITALS: BP 108/58
== END 2017-12-04 06:00 | disposition home or self-care (01) ==
LOC: ER 04:30
DX: R04.0 Epistaxis (principal); J06.9 Acute upper respiratory infection, unspecified; F17.210 Nicotine dependence, cigarettes, uncomplicated; Z98.890 Other specified postprocedural states; Z79.51 Long term (current) use of inhaled steroids
CPT/HCPCS: 84703; 87430

== ENCOUNTER → 2021-02-08 | Outpatient (CLI) | payer BC ==
[~2021-02-08] MED LIST: AMOX-358 PO; BENZ100C18 PO; FLUT9.9S NS; LORA1TAB59 PO
--- NOTE | 2021-02-08 15:16 | Diagnostic Imaging Report ---
INDICATION: survey. TECHNIQUE: Multiple Real-time grayscale images were obtained over the gravid uterus. COMPARISON: None. FINDINGS: There is a single live fetus in a cephalic presentation. The heart rate was recorded at 142 BPM. The placenta is anterior to the left. The amniotic fluid volume is normal. The cervical length is 3.4 cm. The kidneys, bladder, and stomach are unremarkable. The brain is unremarkable. There is a four-chamber heart. There is a three-vessel cord with normal insertion. The spine is unremarkable. Biometrical measurements are as follows: Biparietal 4.78 cm, age 20 weeks 4 days. Head circumference 17.8 cm, age 20 weeks 2 days. Abdominal circumference 15.21 cm, age 20 weeks 3 days. Femur length 3.35 cm, age 20 weeks 4 days. Sonographic estimate age: 20 weeks 4 days. Sonographic estimated date of delivery: 06/24/21. Estimated Weight: 354 gm (+/- 52 gm). LMP percentile: 63%. heart rate: 142 beats per minute. number: 1 of 1. IMPRESSION: Single live IUP of 20 weeks 4 days gestational age. The estimated date of confinement sonographically is 06/24/2021. Dictated by: Dictated on workstation # [id number]
== END ==
LOC: RAD 13:00
PROVIDERS: ATTEND Obstetrics & Gynecology
DX: Z36.89 Encounter for other specified antenatal screening (principal); Z3A.20 20 weeks gestation of pregnancy
CPT/HCPCS: 76805

== ENCOUNTER 2021-03-15 13:17 | Outpatient (CLI) | payer BC ==
[~2021-03-15] VITALS: Ht 160 cm; Wt 69.0 kg
[2021-03-15 13:35] VITALS: BP 110/63
[2021-03-15 13:37] VITALS: BP 110/63
[2021-03-15 13:37] LABS: BILIRUBIN,URINE NEGATIVE (NEGATIVE); CLARITY,URINE CLOUDY; COLOR,URINE YELLOW; GLUCOSE, URINE (UA) NEGATIVE (NEGATIVE); KETONES,URINE TRACE (NEGATIVE); LEUKOCYTE ESTERASE ,URINE TRACE (NEGATIVE); NITRITE,URINE NEGATIVE (NEGATIVE); PH,URINE 7.5 (5-9); PROTEIN,URINE TRACE (NEGATIVE)
[2021-03-15 13:51] LABS: BACTERIA,URINE MODERATE /HPF; RBC,URINE 0-2 /HPF; SQUAMOUS EPITHELIAL CELL,UR 25-50 /HPF
[2021-03-15] MEDS ORDERED: NS IV 1000 ML 1,000 ML ONE (14:10)
[2021-03-15] MEDS ORDERED: NS IV 1000 ML 1,000 ML IV SCH (14:15)
[2021-03-15] MEDS ORDERED: PROMETHAZINE INJ 25 MG/ML (PHENERGAN) AMP IVP ONE (14:15)
[2021-03-15 14:27] LABS: BASOPHILS % (AUTO) 0 % (0-10); EOSINOPHILS # (AUTO) 0.1 10^3/uL (0.0-0.3); EOSINOPHILS % (AUTO) 1 % (0-10); HEMATOCRIT 34 % (35-52); HEMOGLOBIN 11.3 g/dL (11.5-16.0); LYMPHOCYTES # (AUTO) 1.5 10^3/uL (1.0-4.0); LYMPHOCYTES % (AUTO) 19 % (12-44); MEAN CORPUSCULAR HEMOGLOBIN 31 pg (25-34); MEAN CORPUSCULAR HGB CONC 34 g/dL (32-36); MEAN CORPUSCULAR VOLUME 91 fL (80-99); MEAN PLATELET VOLUME 10.5 fL (9.0-12.2); MONOCYTES # (AUTO) 0.5 10^3/uL (0.0-1.0); MONOCYTES % (AUTO) 7 % (0-12); NEUTROPHILS # (AUTO) 5.9 10^3/uL (1.8-7.8); NEUTROPHILS % (AUTO) 73 % (42-75); PLATELET COUNT 179 10^3/uL (130-400); WHITE BLOOD COUNT 8.1 10^3/uL (4.3-11.0)
[2021-03-15 14:47] LABS: BAND NEUTROPHILS 2 %; BASOPHILS % (MANUAL) 0 %; EOSINOPHILS % (MANUAL) 1 %; LYMPHOCYTES % (MANUAL) 21 %; MONOCYTES % (MANUAL) 5 %; NEUTROPHILS % (MANUAL) 71 %; RBC MORPH NORMAL
[2021-03-15 14:50] LABS: ALBUMIN 3.1 GM/DL (3.2-4.5); BILIRUBIN,TOTAL 0.4 MG/DL (0.1-1.0); CALCIUM 8.4 MG/DL (8.5-10.1); CREATININE SERUM 0.53 MG/DL (0.60-1.30); POTASSIUM 3.6 MMOL/L (3.6-5.0); TOTAL PROTEIN 6.2 GM/DL (6.4-8.2)
[2021-03-15 16:13] VITALS: BP 98/45
--- NOTE | 2021-03-15 16:24 | Diagnostic Imaging Report ---
PROCEDURE: US Gallbladder, 03/15/2021. TECHNIQUE: Multiple real-time grayscale images were obtained over the right upper quadrant in various projections. INDICATION: Abdominal pain, nausea and vomiting. FINDINGS: The liver is unremarkable with no focal lesions or intrahepatic biliary ductal dilatation. The gallbladder wall is within normal limits. There is a fold within the gallbladder. There is no cholelithiasis or pericholecystic fluid. The common duct is not well seen by the online activist. The visualized aspects of pancreas, aorta and IVC unremarkable. Right kidney 12.3 cm in length with no hydronephrosis. There is no ascites. IMPRESSION: 1. Unremarkable right upper quadrant sonogram. Dictated by: Dictated on workstation # [id number]
[2021-03-15] MEDS ORDERED: PROM25TA14 PO ×2 (17:44→17:52)
--- NOTE | 2021-03-16 09:05 | Physician Query-Final Dx ---
KAMARI,03/16/21 0905: Clinic Account Progress/Dx Physician Query: Please give diagnosis Please include # weeks gestation Date of Service Mar 15, 2021 at 13:17 ALHAJI AKBAR DO 03/17/21 0842: Clinic Account Progress/Dx DIAGNOSIS: Diagnosis vomiting, dehydration 25 week gestation ,MarMar 16, 2021 09:05 ALHAJI AKBAR DO Mar 17, 2021 08:42
== END 2021-03-15 18:05 ==
LOC: WSo 13:17 → WS 13:18 → LDRP 13:31 → WSo 18:05
PROVIDERS: ATTEND Obstetrics & Gynecology
DX: O21.9 Vomiting of pregnancy, unspecified (principal); Z3A.25 25 weeks gestation of pregnancy
CPT/HCPCS: 36415; 76705; 80053; 81000; 82150; 83690; 85007; 85027; 87088

== ENCOUNTER → 2021-04-05 | Outpatient (CLI) | payer BC ==
[~2021-04-05] MED LIST changes: +PROM25TA14 PO
--- NOTE | 2021-04-05 11:26 | Diagnostic Imaging Report ---
INDICATION: Small for gestational age fetus. TECHNIQUE: Multiple real-time grayscale images were obtained over the gravid uterus. COMPARISON: None. FINDINGS: The fetus is active, currently breech positioned. The amniotic fluid index is 19 cm. Placenta is anterior and not low. The maternal adnexa is normal. Biometrical measurements are as follows: Biparietal 6.82 cm, age 27 weeks 4 days. Head circumference 26.31 cm, age 28 weeks 5 days. Abdominal circumference 24.30 cm, age 28 weeks 4 days. Femur length 5.43 cm, age 28 weeks 6 days. Sonographic estimate age: 28 weeks 3 days. Sonographic estimated date of delivery: 06/25/2021. Estimated Weight: 1244 gm (+/- 182 gm). LMP percentile: 53%. heart rate: 142 beats per minute. number: 1 of 1. IMPRESSION: Single live intrauterine fetus with current biometric measurements average for 28 weeks 3 days. No abnormalities demonstrated. Dictated by: Dictated on workstation # [id number]
== END ==
LOC: RAD 10:00
PROVIDERS: ATTEND Obstetrics & Gynecology
DX: O36.5999 Maternal care for other known or suspected poor fetal growth, unspecified trimester, other fetus (principal); Z3A.28 28 weeks gestation of pregnancy
CPT/HCPCS: 76805

== ENCOUNTER → 2021-05-09 | Outpatient (CLI) | payer BC ==
--- NOTE | 2021-05-09 18:12 | Diagnostic Imaging Report ---
INDICATION: Abnormal glucose tolerance test during , gestational diabetes TECHNIQUE: Multiple real-time grayscale images were obtained over the gravid uterus. COMPARISON: 04/05/2021 FINDINGS: There is a single live intrauterine gestation in cephalic presentation. The cervix is measured at 3.3 cm, but is not well seen due to shadowing from the head. The placenta is anterior. No previa is demonstrated. The heart rate measures 134 BPM. The amniotic fluid index measures 23.8 cm. The biophysical profile score is 8 out of 8. Biometrical measurements are as follows: Biparietal 8.04 cm, age 32 weeks 3 days. Head circumference 29.70 cm, age 33 weeks 0 days. Abdominal circumference 29.20 cm, age 33 weeks 2 days. Femur length 6.44 cm, age 33 weeks 2 days. Sonographic estimate age: 33 weeks 0 days. Sonographic estimated date of delivery: 06/27/2021. Estimated Weight: 2117 gm (+/- 309 gm). LMP percentile: 43%. heart rate: 134 beats per minute. number: 1 of 1. IMPRESSION: 1. Single live intrauterine gestation measuring at 33 weeks 0 days which is concordant with the clinical dates. 2. Biophysical profile score of 8 out of 8 Dictated by: Dictated on workstation # [id number]
== END ==
LOC: RAD 13:00
PROVIDERS: ATTEND Obstetrics & Gynecology
DX: O99.810 Abnormal glucose complicating pregnancy (principal); Z3A.33 33 weeks gestation of pregnancy
CPT/HCPCS: 76805; 76819

== ENCOUNTER 2021-06-03 12:35 | Outpatient (CLI) | payer BC ==
[2021-06-03 12:42] VITALS: BP 119/65
[2021-06-03 12:48] VITALS: BP 119/65
== END 2021-06-03 13:00 | disposition home or self-care (01) ==
LOC: WSo 12:35 → LDRP 12:35 → WSo 13:00
PROVIDERS: ATTEND Obstetrics & Gynecology
DX: O36.8390 Maternal care for abnormalities of the fetal heart rate or rhythm, unspecified trimester, not applicable or unspecified (principal); Z3A.00 Weeks of gestation of pregnancy not specified
CPT/HCPCS: 59025

== ENCOUNTER → 2021-06-03 | Outpatient (CLI) | payer BC ==
--- NOTE | 2021-06-03 11:15 | Diagnostic Imaging Report ---
INDICATION: Gestational diabetes mellitus. TECHNIQUE: Multiple real-time grayscale images were obtained over the gravid uterus. COMPARISON: 05/09/2021, 02/08/2021 FINDINGS: A single viable intrauterine currently in cephalic presentation. Normal amount of amniotic fluid, index at 13.3 cm. Visualized placenta along the anterior left aspect without evidence for previa. Biometrical measurements are as follows: Biparietal 8.58 cm, age 34 weeks 5 days. Head circumference 32.53 cm, age 36 weeks 6 days. Abdominal circumference 32.10 cm, age 36 weeks 1 days. Femur length 6.88 cm, age 35 weeks 3 days. Sonographic estimate age: 35 weeks 6 days. Sonographic estimated date of delivery: 07/02/2021. Estimated Weight: 2764 gm (+/- 404 gm). LMP percentile: 32%. heart rate: 156 beats per minute. number: 1 of 1. Biophysical Profile Scoring: breathin Body movement: 0 tone: 0 Amniotic fluid: 2 Total BPP Score: 4/8 IMPRESSION: 1. Single viable intermixing currently in a cephalic presentation. Sonographic estimated age 35 weeks 6 days, estimated date of delivery 07/02/2021. Approximately 8 days delayed compared to initial ultrasound dating. 2. Abnormal biophysical profile score 4 of 8. There is absence of movement and poor tone. Findings are being relayed to Dr. Richardson's office by the hydraulic tester. Dictated by: Dictated on workstation # [id number]
== END ==
LOC: RAD 10:00
PROVIDERS: ATTEND Obstetrics & Gynecology
DX: O24.414 Gestational diabetes mellitus in pregnancy, insulin controlled (principal); Z3A.35 35 weeks gestation of pregnancy
CPT/HCPCS: 76805; 76819

== ENCOUNTER 2021-06-04 10:36 | Outpatient (CLI) | payer BC ==
[2021-06-04 11:17] VITALS: BP 114/62
--- NOTE | 2021-06-04 11:17 | OB Triage Report ---
Standard Progress Note Progress Notes/Assess & Plan Date Seen by a Provider: Jun 04, 2021 Time Seen by a Provider: 10:30 Expected Date of Delivery: Jun 14, 2021 Gestational Age in Weeks: 36 Gestational Age in Days: 5 LMP/JAVY Comment: 06/27/2021 Progress/Assessment & Plan Sara Estes is a 36 yo at 36w5d with GDMA2, who presents for surveillance. She presented for an NST on yesterday (06/03/2021) after obtaining a BPP score of 4/8 (-2 for tone, -2 for movement). She had a reactive NST for a total BPP of 6/10. She was told to represent on today for a repeat BPP and NST in accordance to recommendations on [email or web address]. She reports decreased movement thus far today. She denies vaginal bleeding, LOF or contractions. BPP: 8/8, patient reported movement once ultrasound probe was placed on abdomen NST: reactive, 135, moderate variability, Accels present, Decels absent TOCO: occasional contractions A/P: 36 yo at 36w5d with GDMA here for surveillance. Reassuring BPP and NST completed today with a score of 10/10. Patient given appropriate precautions with plans to follow-up in office with Dr. Richardson on 06/07/2021. Will strive for plans for repeat at 38wga on 06/14/2021. Final Diagnosis Gestational diabetes, type A2 36 weeks gestation h/o h/o delivery MORRIS POWELL MD Jun 04, 2021 11:17
== END 2021-06-04 11:19 | disposition home or self-care (01) ==
LOC: WSo 10:36 → LDRP 10:36 → WSo 11:19
PROVIDERS: ATTEND Obstetrics & Gynecology
DX: Z34.90 Encounter for supervision of normal pregnancy, unspecified, unspecified trimester (principal)
CPT/HCPCS: 59025

== ENCOUNTER → 2021-06-08 | Outpatient (CLI) | payer BC ==
[~2021-06-08] MED LIST changes: +METF-397 PO
--- NOTE | 2021-06-08 10:02 | Diagnostic Imaging Report ---
TIME OF STUDY: 06/08/2021 8:58 AM INDICATION: GESTATIONAL DIABETES. COMPARISON: 06/03/2021. TECHNIQUE: Transabdominal sonogram was performed. GESTATIONAL AGE: 37 weeks, 2 days GENERAL EVALUATION: Presentation: Cephalic Placenta: Anterior Cardiac activity: 139 bpm Amniotic fluid index: The total GINA is 19.1 cm. The largest vertical pocket measures 6.2 cm. BIOPHYSICAL PROFILE SCORING: tone: 2 movement: 2 breathin Amniotic fluid: 2 TOTAL SCORE: 8 out of 8 FINDINGS/ IMPRESSION: 1. Single live intrauterine gestation with biophysical profile score of 8 out of 8. Dictated by: Dictated on workstation # [id number]
== END ==
LOC: RAD 08:30
PROVIDERS: ATTEND Obstetrics & Gynecology
DX: O24.419 Gestational diabetes mellitus in pregnancy, unspecified control (principal)
CPT/HCPCS: 76819

== ENCOUNTER 2021-06-09 05:48 | Outpatient (CLI) | payer BC ==
[~2021-06-09] VITALS: Ht 154.9 cm; Wt 72.7 kg
[~2021-06-09 05:48] MED LIST changes: -METF-397 PO
[2021-06-09] MEDS ORDERED: METF-397 PO (10:35)
== END 2021-06-09 10:57 | disposition home or self-care (01) ==
LOC: PREOP 05:48
PROVIDERS: ATTEND Obstetrics & Gynecology
DX: Z01.818 Encounter for other preprocedural examination (principal)

== ENCOUNTER 2021-06-14 08:20 | Inpatient (IN) | payer BC ==
[~2021-06-14] VITALS: Ht 157 cm; Wt 73.4 kg
[2021-06-14] VITALS (7 sets, daily range): BP systolic 91–110; BP diastolic 56–68
[~2021-06-14 08:20] MED LIST changes: +METF-397 PO
[2021-06-14] MEDS ORDERED: FAMOTIDINE 20MG/2ML IV (PEPCID) IVP ONE (08:45)
[2021-06-14] MEDS ORDERED: CATHETER FLUSH 10 ML SYR IV PRN (08:45)
[2021-06-14] MEDS ORDERED: CITRIC ACID/SOB CIT (BICITRA) 30 ML UDC PO ONE (08:45)
[2021-06-14] MEDS ORDERED: ceFAZolin 2 GM IV Premixed 50 ML IV ONE (08:45)
[2021-06-14] MEDS ORDERED: METOCLOPRAMIDE INJ 10 MG/2 ML (REGLAN) IV ONE (08:45)
[2021-06-14] MEDS ORDERED: LACTATED RINGERS 1,000 ML IV PRN (08:45)
[2021-06-14 09:07] LABS: BILIRUBIN,URINE NEGATIVE (NEGATIVE); CLARITY,URINE SL CLOUDY; COLOR,URINE YELLOW; GLUCOSE, URINE (UA) NEGATIVE (NEGATIVE); KETONES,URINE NEGATIVE (NEGATIVE); LEUKOCYTE ESTERASE ,URINE 1+ (NEGATIVE); NITRITE,URINE NEGATIVE (NEGATIVE); PH,URINE 7.5 (5-9); PROTEIN,URINE NEGATIVE (NEGATIVE)
[2021-06-14 09:08] LABS: BASOPHILS % (AUTO) 0 % (0-10); EOSINOPHILS # (AUTO) 0.1 10^3/uL (0.0-0.3); EOSINOPHILS % (AUTO) 1 % (0-10); HEMATOCRIT 34 % (35-52); HEMOGLOBIN 11.4 g/dL (11.5-16.0); LYMPHOCYTES # (AUTO) 2.3 10^3/uL (1.0-4.0); LYMPHOCYTES % (AUTO) 20 % (12-44); MEAN CORPUSCULAR HEMOGLOBIN 30 pg (25-34); MEAN CORPUSCULAR HGB CONC 34 g/dL (32-36); MEAN CORPUSCULAR VOLUME 90 fL (80-99); MEAN PLATELET VOLUME 10.8 fL (9.0-12.2); MONOCYTES # (AUTO) 0.5 10^3/uL (0.0-1.0); MONOCYTES % (AUTO) 5 % (0-12); NEUTROPHILS # (AUTO) 8.1 10^3/uL (1.8-7.8); NEUTROPHILS % (AUTO) 73 % (42-75); PLATELET COUNT 180 10^3/uL (130-400); WHITE BLOOD COUNT 11.2 10^3/uL (4.3-11.0)
[2021-06-14 09:34] LABS: AMORPHOUS SEDIMENT,UR RARE AMOR PHOSPHATE /LPF; BACTERIA,URINE MODERATE /HPF
[2021-06-14] MEDS: LACTATED RINGERS 1,000 ML IV PRN ×2 (09:43→13:07)
[2021-06-14] MEDS ORDERED: PREN1TAB79 PO (09:55)
[2021-06-14] MEDS ORDERED: METOCLOPRAMIDE INJ 10 MG/2 ML (REGLAN) ONE (10:50)
[2021-06-14] MEDS ORDERED: FAMOTIDINE 20MG/2ML IV (PEPCID) ONE (10:51)
[2021-06-14] MEDS ORDERED: fentaNYL INJ 100 MCG/2 ML AMP ONE (10:52)
[2021-06-14] MEDS ORDERED: ONDANSETRON 4 MG/2 ML (SDV) Z0FRAN ONE (10:52)
[2021-06-14] MEDS ORDERED: CITRIC ACID/SOB CIT (BICITRA) 30 ML UDC ONE (11:12)
--- NOTE | 2021-06-14 12:21 | History & Physical-OB ---
OB - Chief Complaint & HPI Date/Time Date of Admission: Date of Admission: Jun 14, 2021 at 08:20 Date seen by a Provider: Jun 14, 2021 Time Seen by a Provider: 12:15 Chief Complaint/History OB-Reason for Admission/Chief: Section Hx : 4 Hx Para: 121 Expected Date of Delivery: Jun 27, 2021 Gestational Age in Weeks: 38 Gestational Age in Days: 1 Indication for induction: medical complication (gestational diabetes) Admission Nurse Assessment Rev: Yes History of Labs O-/- Rub I VDRL NR HBsAg - Hep C + GBS - Other 36 year old with history of previous section. Has history of gestational diabetes this . Has been started on metformin due to elevated fasting levels. Blood sugars were improved after starting the metformin. testing has been reassuring until the last week in which she has had borderline testing. Cs scheduled at 38 weeks due to this. Allergies and Home Medications Allergies Coded Allergies: No Known Drug Allergies (Unverified , 06/09/21) Patient Home Medication List Home Medication List Reviewed: Yes Metformin HCl (Metformin HCl) 500 Mg Tablet, 500 MG PO BID, (Reported) Entered as Reported by: ERMIAS ANSARI on 06/09/21 1035 Vit W-Ca,Fe,FA(<1 mg) ( Vitamins) 1 Each Tablet, 1 EACH PO DAILY, (Reported) Entered as Reported by: GERALD WHITMAN on 06/14/21 0955 Last Action: New Order Discontinued Medications Fluticasone Propionate (Flonase Allergy Relief) 9.9 Ml Golden.susp, 2 SPRAYS NS BID Discontinued Reason: No Longer Taking Prescribed by: HAILY WANG on 12/04/17 0532 Loratadine/Pseudoephedrine (Claritin-D 12 Hour Tablet) 1 Each Tab.er.12h, 1 EACH PO BID Discontinued Reason: No Longer Taking Prescribed by: HAILY WANG on 12/04/17 0532 Promethazine HCl (Promethazine Tablet) 25 Mg Tablet, 25 MG PO Q6H PRN for NAUSEA/VOMITING Discontinued Reason: No Longer Taking Prescribed by: DORY HANKINS on 03/15/21 1752 OB - History Hx of Present Care: Yes Ultrasounds: No ultrasounds Obstetrical Complications: Gestational Diabetes Medical Complications: None Information Induced Hypertension: No Maternal Gestational Diabetes: Yes Hemorrhage: No Obstetrical History Hx : 4 Hx Para: 1 Hx # Term Pregnancies: 0 Hx # Pregnancies: 1 Number of Living Children: 1 Hx Multiple Gestation: No Hx Ectopic : No Hx Stillbirth: No Hx Complication: No Hx Induced Hypertens: No Hx Maternal Gestational Diabet: Yes Hx Hemorrhage: No Delivery History Hx Dystocia: No Hx Forceps Assisted Delivery: No Hx Vacuum Extraction Assisted: No Hx Placenta Abnormality: No Hx Distress: No Hx Large For Gestational Age I: No Hx Small for Gestational Age I: Yes Hx Section: Yes Hx Vaginal Delivery Post C-Sec: No Hx Blood Disorders: No Patient Past Medical History hepatitis C untreated Social History/Family History Alcohol Use: Denies Use Recreational Drug Use: Yes (history ) Smoking Cessation: Current every day smoker Immunizations Influenza Vaccine Up-to-Date: No; Not Current First/Initial COVID19 Vaccine: mederna august 2020 Second COVID19 Vaccination: moderna september 2020 Hepatitis A: Yes Hepatitis B: Yes Tetanus Booster (TDap): Unknown Rubella: immune RPR/VDRL: Negative GBS Status: Negative HBsAG: Negative OB - Admission Exam Physical Exam Vitals: Vital Signs 06/14/21 08:45 Temp 36.3 Pulse 96 Resp 20 Pulse Ox 97 O2 Delivery Room Air HEENT: NCAT Heart: Rhythm Normal Abdomen: Gravid Extremities: Normal Reflexes: Normal Cervical Dilatation: other (NE) Heart Rate: 130's Accelerations: Accelerations Present Decelerations: No Decelerations Short Term Variability: Present Investigation Division Sergeant Variability: Average (6-25) Contractions on Admission: 6-10 Minutes Apart Labs Laboratory Tests Test 06/14/21 07:50 Range/Units White Blood Count 11.2 H 4.3-11.0 10^3/uL Red Blood Count 3.76 L 3.80-5.11 10^6/uL Hemoglobin 11.4 L 11.5-16.0 g/dL Hematocrit 34 L 35-52 % Mean Corpuscular Volume 90 80-99 fL Mean Corpuscular Hemoglobin 30 25-34 pg Mean Corpuscular Hemoglobin Concent 34 32-36 g/dL Red Cell Distribution Width 13.2 10.0-14.5 % Platelet Count 180 130-400 10^3/uL Mean Platelet Volume 10.8 9.0-12.2 fL Immature Granulocyte % (Auto) 1 % Neutrophils (%) (Auto) 73 42-75 % Lymphocytes (%) (Auto) 20 12-44 % Monocytes (%) (Auto) 5 0-12 % Eosinophils (%) (Auto) 1 0-10 % Basophils (%) (Auto) 0 0-10 % Neutrophils # (Auto) 8.1 H 1.8-7.8 10^3/uL Lymphocytes # (Auto) 2.3 1.0-4.0 10^3/uL Monocytes # (Auto) 0.5 0.0-1.0 10^3/uL Eosinophils # (Auto) 0.1 0.0-0.3 10^3/uL Basophils # (Auto) 0.0 0.0-0.1 10^3/uL Immature Granulocyte # (Auto) 0.1 0.0-0.1 10^3/uL Urine Color YELLOW Urine Clarity SL CLOUDY Urine pH 7.5 5-9 Urine Specific [place] 1.015 L 1.016-1.022 Urine Protein NEGATIVE NEGATIVE Urine Glucose (UA) NEGATIVE NEGATIVE Urine Ketones NEGATIVE NEGATIVE Urine Nitrite NEGATIVE NEGATIVE Urine Bilirubin NEGATIVE NEGATIVE Urine Urobilinogen 0.2 < = 1.0 MG/DL Urine Leukocyte Esterase 1+ H NEGATIVE Urine RBC (Auto) NEGATIVE NEGATIVE Urine RBC NONE /HPF Urine WBC 2-5 /HPF Urine Squamous Epithelial Cells 10-25 H /HPF Urine Crystals PRESENT H /LPF Urine Amorphous Sediment RARE NAMAN PHOSPHATE H /LPF Urine Bacteria MODERATE H /HPF Urine Casts NONE /LPF Urine Mucus NEGATIVE /LPF Urine Culture Indicated YES OB - Assessment/Plan/Diagnosis Assessment Assessment: section, other (Gestational diabetes, A2; Hep C; Rh -; 38 weeks gestation) Admission Dx Repeat section Admission Status: Inpatient Order (span 2 midnights) Reason for Inpatient Admission: section Plan Plan: Section Other Plan The risks of bleeding, infection, injury to bowel, bladder and ureter have been explained as were the risk of injury to the fetus and surrounding structures has been explained. There are risks associated with anesthesia and risk of DVT/pulmonary embolism. the patient understands and proper consents have been signed. Will use prophylactic antibiotics and SCDs. In addition she has requested no narcotics unless she can't control pain with oral analgesics (APAP and ibuprofen). will request a TAP block as well. ALHAJI AKBAR DO Jun 14, 2021 12:21
[2021-06-14] MEDS ORDERED: BUPIVACAINE 0.5% 30 ML (SENSORCAINE) VIAL ONE (12:42)
[2021-06-14] MEDS ORDERED: KETOROLAC 30 MG/ML VIAL ONE (12:42)
[2021-06-14] MEDS ORDERED: OXYTOCIN PRE-MIX DRIP 500 ML IV ONE (12:42)
--- NOTE | 2021-06-14 13:22 | Cesarean Section Operative ---
Procedure Procedure Note Pre-operative Diagnosis: Sara Estes is a 36 /Para 4 / 1, Gestational Age 38 1/7 weeks, history of previous section, gestational diabetes, A2, borderline testing. Post-operative Diagnosis: same, Procedure: Repeat low transverse section Physician: ALHAJI AKBAR Estimated blood loss: 400 mL Disposition: [] Findings: Viable female infant, Apgars 8/8, weight 6#2onces, intact placenta, 3vc, normal appearing uterus, tubes, and ovaries. there was a nuchal cord/body cord around the neck and then looped around the body (like a vest over both arms) Indications:Sara Estes is a 36 /Para 4 / 1,Gestational Age 38 1/7 weeks, history of previous section, gestational diabetes, A2, borderline testing presenting for repeat section. Procedure Details: The patient was seen in pre-op and the procedure was discussed with the patient in full, including the risks, benefits, and alternatives. All questions were a nswered. The patient was taken to the operating room and a time out was performed, verifying patient and procedure. After spinal anesthesia was placed by our anesthesia colleagues, the patient was placed in the dorsal supine with leftward tilt for uterine displacement.~ Her abdomen was then prepped and draped in the typical sterile fashion. A Pfannenstiel skin incision was made using a scalpel and carried down through the underlying fascia. The fascia was incised in the midline and tented up using Trudy clamps. On both the inferior and superior fascia side the rectus muscle was dissected off bluntly and sharply using Bradshaw scissors. The peritoneum was identified and entered bluntly in the midline. This was then stretched laterally using manual strength. After entering the abdominal cavity and confirming lack of intraperitoneal adhesions, a large Britton retractor was placed and the lower uterine segment was visualized. A bladder flap was created with the use of Metzenbaum scissors.~ A scalpel was utilized to make a low transverse uterine incision. Amniotomy was performed with an Allis clamp with return of clear fluid. The 's head was grasped and brought to the level of the incision. silastic suction was used to help facilitate delivery of the head. Fundal pressure was applied and infant was delivered without difficulty. Mouth and nares were suctioned with bulb suction. After the umbilical cord was clamped and cut, the was handed off to the pediatric staff. A sample of cord blood was then obtained. The placenta was delivered intact via uterine massage. The uterus was cleared of all clots and debris. The uterine incision was closed using 0 Vicryl in a running locked fashion. A second imbricated layer was placed using 0 Vicryl in a running fashion as well. The bilateral tubes and ovaries appeared normal. The abdominal gutters were cleared of all clots and debris. A final check of the uterine incision showed it to be hemostatic. The peritoneum was closed using 3-0 Vicryl in a running fashion. The fascia was closed with 0 PDS in a running fashion. The subcutaneous space was hemostatic, and irrigated. The subcutaneous space was closed with 3-0 Plain in several single interrupted stitches. The skin was then closed using 4-0 Biosyn in a running subcuticular fashion. The skin edges were reapproximated together and were hemostatic. A pressure dressing was applied. All sponge, lap and needle counts were correct at the end of the procedure per nursing. Vitals - Labs Vital Signs - I&O Vital Signs Date Time Temp Pulse Resp B/P (MAP) Pulse Ox O2 Delivery O2 Flow Rate FiO2 06/14/21 08:45 36.3 96 20 97 Room Air Labs Laboratory Tests 06/14/21 07:50: White Blood Count 11.2H, Red Blood Count 3.76L, Hemoglobin 11.4L, Hematocrit 34L , Mean Corpuscular Volume 90, Mean Corpuscular Hemoglobin 30, Mean Corpuscular Hemoglobin Concent 34, Red Cell Distribution Width 13.2, Platelet Count 180, Mean Platelet Volume 10.8, Immature Granulocyte % (Auto) 1, Neutrophils (%) (Auto) 73, Lymphocytes (%) (Auto) 20, Monocytes (%) (Auto) 5, Eosinophils (%) (Auto) 1, Basophils (%) (Auto) 0, Neutrophils # (Auto) 8.1H, Lymphocytes # (Auto) 2.3, Monocytes # (Auto) 0.5, Eosinophils # (Auto) 0.1, Basophils # (Auto) 0.0, Immature Granulocyte # (Auto) 0.1, Urine Color YELLOW, Urine Clarity SL CLOUDY, Urine pH 7.5, Urine Specific [place] 1.015L, Urine Protein NEGATIVE, Urine Glucose (UA) NEGATIVE, Urine Ketones NEGATIVE, Urine Nitrite NEGATIVE, Urine Bilirubin NEGATIVE, Urine Urobilinogen 0.2, Urine Leukocyte Esterase 1+H, Urine RBC (Auto) NEGATIVE, Urine RBC NONE, Urine WBC 2-5, Urine Squamous Epithelial Cells 10-25H, Urine Crystals PRESENTH, Urine Amorphous Sediment RARE NAMAN PHOSPHATEH, Urine Bacteria MODERATEH, Urine Casts NONE, Urine Mucus NEGATIVE, Urine Culture Indicated YES ALHAJI AKBAR DO Jun 14, 2021 13:22
[2021-06-14] MEDS ORDERED: TETANUS,DIPTH,PERTUSS P/F (BOOSTRIX) 0.5 ML VIAL IM SCH (13:30)
[2021-06-14] MEDS ORDERED: NALOXONE 0.4 MG/ML 1 ML (NARCAN) VIAL IV PRN ×3 (13:30→13:45)
[2021-06-14] MEDS ORDERED: MEASLES,MUMPS,RUBELLA 1 EA INJ SC SCH (13:30)
[2021-06-14] MEDS ORDERED: OXYTOCIN PRE-MIX DRIP 500 ML IV SCH (13:30)
[2021-06-14] MEDS ORDERED: morphine INJ 4 MG/ML 1 ML (VIAL/SYRINGE) IV PRN (13:30)
[2021-06-14] MEDS ORDERED: diphenhydrAMINE 50 MG/ML INJ (BENADRYL) IV PRN (13:45)
[2021-06-14] MEDS ORDERED: METOCLOPRAMIDE INJ 10 MG/2 ML (REGLAN) IV PRN (13:45)
[2021-06-14] MEDS ORDERED: ONDANSETRON 4 MG/2 ML (SDV) Z0FRAN IV PRN (13:45)
[2021-06-14] MEDS: CATHETER FLUSH 10 ML SYR IV SCH (14:00)
[2021-06-14] MEDS: ACETAMINOPHEN 500 MG TAB (TYLENOL) PO SCH ×2 (14:59→23:02)
[2021-06-14] MEDS ORDERED: IBUP-844 PO (18:10)
[2021-06-14] MEDS ORDERED: ACET-93 PO (18:10)
[2021-06-14] MEDS ORDERED: DOCU100C37 PO (18:10)
[2021-06-14] MEDS ORDERED: FERR325T24 PO (18:10)
--- NOTE | 2021-06-14 18:12 | Discharge Inst-Women's Service ---
Discharge Inst-Women's Serv Depart Medication/Instructions New, Converted or Re-Newed RX: Transmitted to Pharmacy Final Diagnosis gestational diabetes, A2 borderline testing 38 week gestation previous section maternal smoking Rh - Problems Reviewed?: Yes Consults/Follow Up Additional Follow Up: Yes (1 week for incision check/ 6 week post ) Activity Activity: Activity as Tolerated Driving Instructions: No Driving for 1 Week NO SMOKING: NO SMOKING Nothing Inside Vagina: No Douching, No [place], No Tampons Diet Discharge Diet: No Restrictions Symptoms to Report to : Swelling Increased, Bleeding Excessive, Pain Increased, Fever Over 101 Degrees F, Vaginal Bleeding Increase, Cramps in Feet or Legs, Vaginal Discharge Foul For Any Problems or Questions: Contact Your Physician Skin/Wound Care Infection Signs and Symptoms: Increased Redness, Foul Odor of Wound, Increased Drainage, Skin Itchy or Has a Rash, Increased Swelling, Temperature Above 101 F Operative Area Clean and Dry: Keep Incision Clean/Dry Stitches/Matias/Dermabond: Dermabond Bathing Instructions: ALHAJI Gilbert DO Jun 14, 2021 18:12
[2021-06-14] MEDS: KETOROLAC 30 MG/ML VIAL IV SCH (18:58)
[2021-06-14] MEDS ORDERED: DOCUSATE SODIUM 100 MG (COLACE) CAP PO SCH (21:00)
[2021-06-15] MEDS ORDERED: CALCIUM CARBONATE 500 MG (TUMS) TAB.CHEW PO ONE
[2021-06-15 00:19] VITALS: BP 100/58
[2021-06-15] MEDS: CATHETER FLUSH 10 ML SYR IV SCH ×2 (00:56→07:04)
[2021-06-15] MEDS: KETOROLAC 30 MG/ML VIAL IV SCH ×2 (00:56→07:03)
[2021-06-15 05:00] VITALS: BP 97/66
[2021-06-15] MEDS ORDERED: CALCIUM CARBONATE 500 MG (TUMS) TAB.CHEW ONE (05:25)
[2021-06-15 05:39] LABS: BASOPHILS % (AUTO) 0 % (0-10); EOSINOPHILS % (AUTO) 0 % (0-10); HEMATOCRIT 29 % (35-52); HEMOGLOBIN 9.9 g/dL (11.5-16.0); LYMPHOCYTES # (AUTO) 2.5 10^3/uL (1.0-4.0); LYMPHOCYTES % (AUTO) 13 % (12-44); MEAN CORPUSCULAR HEMOGLOBIN 31 pg (25-34); MEAN CORPUSCULAR HGB CONC 34 g/dL (32-36); MEAN CORPUSCULAR VOLUME 91 fL (80-99); MEAN PLATELET VOLUME 11.4 fL (9.0-12.2); MONOCYTES # (AUTO) 1.1 10^3/uL (0.0-1.0); MONOCYTES % (AUTO) 6 % (0-12); NEUTROPHILS # (AUTO) 15.9 10^3/uL (1.8-7.8); NEUTROPHILS % (AUTO) 81 % (42-75); PLATELET COUNT 175 10^3/uL (130-400); WHITE BLOOD COUNT 19.8 10^3/uL (4.3-11.0)
[2021-06-15] MEDS ORDERED: FERROUS SULF 325 MG (IRON) TAB PO SCH (07:00)
[2021-06-15] MEDS: ACETAMINOPHEN 500 MG TAB (TYLENOL) PO SCH (07:04)
[2021-06-15 08:30] VITALS: BP 119/61
[2021-06-15] MEDS ORDERED: CALCIUM CARBONATE 500 MG (TUMS) TAB.CHEW PO PRN (09:15)
[2021-06-15 11:40] VITALS: BP 119/61
[2021-06-15] MEDS ORDERED: IBUPROFEN 600 MG (MOTRIN) TAB PO SCH (12:00)
--- NOTE | 2021-06-15 17:56 | Progress Note ---
Standard Progress Note Progress Notes/Assess & Plan Date Seen by a Provider: Jun 15, 2021 Time Seen by a Provider: 08:20 Progress/Assessment & Plan S: Pain well-controlled, biju PO, voiding without difficulty, lochia reduced Gen: A&O x 3, NAD Chest: nonlabored Abd: ATTP, no guarding/nondistended Inc: c/d/i Ext: nt A: s/p POD#1 doing well P: cont routine and postoperative care anticipate discharge today instructions for f/u reviewed discussed risks of tobacco use for and encouraged weaning/cessation efforts JEREMIAH MARTINEZ MD Jun 15, 2021 17:56
--- NOTE | 2021-06-16 09:47 | Anesthesia-Regional Post-Op ---
Regional Patient Condition Mental Status: Alert, Oriented x3 Circulation: Same as Pre-Op Headache: Absent Sensation: Full Recovery Motor Block: Absent Post Op Complications Complications None Follow Up Care/Instructions Patient Instructions None needed. Anesthesia/Patient Condition Patient is doing well, no complaints, stable vital signs, no apparent adverse anesthesia problems. No complications reported per nursing. HAYDEE ABDALLA CRNA Jun 16, 2021 09:47
== END 2021-06-15 14:00 | disposition home or self-care (01) | DRG 787 ==
LOC: LDRP 08:20 → WS 14:14
PROVIDERS: ADMIT Obstetrics & Gynecology; ATTEND Obstetrics & Gynecology
PROC: 10D00Z1 Extraction of Products of Conception, Low, Open Approach (ICD-10-PCS; principal; 2021-06-14 12:17)
DX: O24.425 Gestational diabetes mellitus in childbirth, controlled by oral hypoglycemic drugs (principal); O98.413 Viral hepatitis complicating pregnancy, third trimester; Z37.0 Single live birth; O34.211 Maternal care for low transverse scar from previous cesarean delivery; B19.20 Unspecified viral hepatitis C without hepatic coma; O99.333 Smoking (tobacco) complicating pregnancy, third trimester; F17.200 Nicotine dependence, unspecified, uncomplicated; O69.81X0 Labor and delivery complicated by cord around neck, without compression, not applicable or unspecified; O69.82X0 Labor and delivery complicated by other cord entanglement, without compression, not applicable or unspecified; Z3A.38 38 weeks gestation of pregnancy
CPT/HCPCS: 36415; 81000; 82947; 83033; 85025; 86850; 86900; 86901; 87088; 94664

== ENCOUNTER 2021-08-30 12:37 | Emergency (ER) | payer BC ==
[~2021-08-30] VITALS: Ht 154 cm; Wt 63.0 kg
[~2021-08-30 12:37] MED LIST changes: +ACET-93 PO; +DOCU100C37 PO; +FERR325T24 PO; +IBUP-844 PO; +PREN1TAB79 PO
[2021-08-30] MEDS ORDERED: NS IV 1000 ML 1,000 ML IV STA ×2 (13:56→15:23)
[2021-08-30] MEDS ORDERED: MECLIZINE 25 MG (ANTIVERT) TAB PO ONE (14:00)
--- NOTE | 2021-08-30 14:14 | ED General ---
General Chief Complaint: Dizziness/Syncope Stated Complaint: DIZZY - BLURRED VISION - SHAKING - VOMITING Nursing Triage Note: ARRIVED VIA AMB WITH COMPLAINTS OF DIZZINESS X 3-4 DAYS AND BLURRED VISION. STATES SHE HAS VOMITED X4 BUT THINKS IT IS DUE TO DIZZINESS. WAS SEEN AT URGENT CARE THEN SENT HERE FOR A CT. Source of Information: Patient Exam Limitations: No Limitations History of Present Illness Date Seen by Provider: Aug 30, 2021 Time Seen by Provider: 14:12 Initial Comments Patient is a 36-year-old female complains of dizziness over the past 3 to 4 days . She also reports blurred vision bilateral. She states she has chronic visual changes to her left eye has seen ophthalmology with negative MRI. She states she vomited 4 times today secondary to the dizziness. Describes the room is spinning. Worse with walking. She states she drove started feeling dizzy and came to the ER for further evaluation.. Head movement seems to make it worse. Denies headache, fever, chest pain, shortness of breath, diarrhea, neck pain. Denies of any unilateral muscle weakness or sensory changes. She states she does feel weak throughout. Denies history of similar symptoms in the past.. Patient denies of any ear ringing, hearing loss. Allergies and Home Medications Allergies Coded Allergies: No Known Drug Allergies (Unverified , 06/09/21) Patient Home Medication List Home Medication List Reviewed: Yes Acetaminophen (Acetaminophen) 500 Mg Tablet, 1,000 MG PO Q8HR Prescribed by: ALHAJI AKBAR on 06/14/211809 Docusate Sodium (Docusate Sodium) 100 Mg Capsule, 100 MG PO BID Prescribed by: ALHAJI AKBAR on 06/14/211809 Ferrous Sulfate (Ferosul) 325 Mg Tablet, 325 MG PO DAILY@0700 Prescribed by: ALHAJI AKBAR on 06/14/211809 Ibuprofen (Ibu) 600 Mg Tablet, 600 MG PO Q6HR Prescribed by: ALHAJI AKBAR on 06/14/211809 Meclizine HCl (Meclizine HCl) 25 Mg Tablet, 25 MG PO Q6H PRN for DIZZINESS Prescribed by: ALEKSEY RUIZ on 08/30/21 1626 Metoclopramide HCl (Metoclopramide HCl) 10 Mg Tablet, 10 MG PO QID PRN for NAUSEA-1ST LINE Prescribed by: ALEKSEY RUIZ on 08/30/21 1626 Vit W-Ca,Fe,FA(<1 mg) ( Vitamins) 1 Each Tablet, 1 EACH PO DAILY, (Reported) Entered as Reported by: GERALD WHITMAN on 06/14/21 0955 Review of Systems Review of Systems Constitutional: No chills, No malaise EENTM: No blurred vision, No double vision, No dental problems, No hoarseness, No mouth pain, No mouth swelling, No throat pain, No throat swelling Respiratory: No cough, No dyspnea on exertion Cardiovascular: No chest pain Gastrointestinal: No abdominal pain, No diarrhea, No nausea, No vomiting Genitourinary: No decreased output, No discharge Musculoskeletal: No back pain, No gout, No joint pain Skin: No change in color, No change in hair/nails Psychiatric/Neurological: Other (dizzines) Past Sempkvt-Ppgqso-Zncrgs Hx Patient Social History Smoking Status: Current Everyday Smoker Substance use?: No Alcohol Use?: No Immunizations Up To Date Tetanus Booster (TDap): Unknown First/Initial COVID19 Vaccinat: mederna august 2020 Second COVID19 Vaccination Dany: [place] COVID19 Vaccine Internal Affairs Investigator: [email or web address] Seasonal Allergies Seasonal Allergies: No Past Medical History Surgeries: Yes ( X 1 ) Section Respiratory: No Cardiac: No Neurological: No Reproductive Disorders: No Genitourinary: No Gastrointestinal: No Musculoskeletal: No Endocrine: Yes (GESTATIONAL ) HEENT: No Cancer: No Psychosocial: No Integumentary: No Blood Disorders: No Physical Exam Vital Signs Vital Signs - First Documented 08/30/21 12:50 Temp 36.3 Pulse 78 Resp 16 B/P (MAP) 103/74 (84) Pulse Ox 98 O2 Delivery Room Air Capillary Refill : Less Than 3 Seconds Height, Weight, BMI Height: 5'0" Weight: 125lbs. oz. 56.515689qt; 26.00 BMI Method:Stated General Appearance: No Apparent Distress, WD/WN Eyes: Bilateral Eye Normal Inspection, Bilateral Eye PERRL, Bilateral Eye EOMI, Bilateral Eye Other HEENT: PERRL/EOMI, TMs Normal, Normal ENT Inspection, Pharynx Normal Neck: Full Range of Motion, Normal Inspection, Non Tender, Supple Respiratory: Chest Non Tender, Lungs Clear, Normal Breath Sounds, No Accessory Muscle Use, No Respiratory Distress Cardiovascular: Regular Rate, Rhythm, No Edema, No Gallop, No JVD, No Murmur Gastrointestinal: Normal Bowel Sounds, No Organomegaly, No Pulsatile Mass, Non Tender Back: Normal Inspection, No CVA Tenderness Extremity: Normal Capillary Refill, Normal Inspection, Normal Range of Motion Neurologic/Psychiatric: Alert, Oriented x3, No Motor/Sensory Deficits, Normal Mood/Affect, quality control engineering technician II-XII Norm as Tested Skin: Normal Color, Warm/Dry Progress/Results/Core Measures Suspected Sepsis SIRS Temperature: Pulse: 78 Respiratory Rate: 16 Laboratory Tests 08/30/21 14:15: White Blood Count 8.8 Blood Pressure 103 /74 Mean: 84 Laboratory Tests 08/30/21 14:15: Creatinine 0.69, INR Comment 1.0, Platelet Count 242, Total Bilirubin 0.7 Results/Orders Lab Results Laboratory Tests Test 08/30/21 14:15 08/30/21 15:55 Range/Units White Blood Count 8.8 4.3-11.0 10^3/uL Red Blood Count 4.88 3.80-5.11 10^6/uL Hemoglobin 14.4 11.5-16.0 g/dL Hematocrit 43 35-52 % Mean Corpuscular Volume 88 80-99 fL Mean Corpuscular Hemoglobin 30 25-34 pg Mean Corpuscular Hemoglobin Concent 34 32-36 g/dL Red Cell Distribution Width 12.5 10.0-14.5 % Platelet Count 242 130-400 10^3/uL Mean Platelet Volume 10.5 9.0-12.2 fL Immature Granulocyte % (Auto) 0 % Neutrophils (%) (Auto) 62 42-75 % Lymphocytes (%) (Auto) 31 12-44 % Monocytes (%) (Auto) 5 0-12 % Eosinophils (%) (Auto) 1 0-10 % Basophils (%) (Auto) 0 0-10 % Neutrophils # (Auto) 5.5 1.8-7.8 10^3/uL Lymphocytes # (Auto) 2.7 1.0-4.0 10^3/uL Monocytes # (Auto) 0.5 0.0-1.0 10^3/uL Eosinophils # (Auto) 0.1 0.0-0.3 10^3/uL Basophils # (Auto) 0.0 0.0-0.1 10^3/uL Immature Granulocyte # (Auto) 0.0 0.0-0.1 10^3/uL Prothrombin Time 13.2 12.2-14.7 SEC INR Comment 1.0 0.8-1.4 Activated Partial Thromboplast Time 37 H 24-35 SEC Sodium Level 140 135-145 MMOL/L Potassium Level 3.8 3.6-5.0 MMOL/L Chloride Level 105 98-107 MMOL/L Carbon Dioxide Level 27 21-32 MMOL/L Anion Gap 8 5-14 MMOL/L Blood Urea Nitrogen 8 7-18 MG/DL Creatinine 0.69 0.60-1.30 MG/DL Estimat Glomerular Filtration Rate 117 BUN/Creatinine Ratio 12 Glucose Level 91 70-105 MG/DL Calcium Level 9.1 8.5-10.1 MG/DL Corrected Calcium 8.9 8.5-10.1 MG/DL Total Bilirubin 0.7 0.1-1.0 MG/DL Aspartate Amino Transf (AST/SGOT) 38 H 5-34 U/L Alanine Aminotransferase (ALT/SGPT) 67 H 0-55 U/L Alkaline Phosphatase 93 40-136 U/L Total Protein 7.5 6.4-8.2 GM/DL Albumin 4.3 3.2-4.5 GM/DL Urine Color YELLOW Urine Clarity SL CLOUDY Urine pH 6.0 5-9 Urine Specific [place] 1.010 L 1.016-1.022 Urine Protein NEGATIVE NEGATIVE Urine Glucose (UA) NEGATIVE NEGATIVE Urine Ketones NEGATIVE NEGATIVE Urine Nitrite NEGATIVE NEGATIVE Urine Bilirubin NEGATIVE NEGATIVE Urine Urobilinogen 0.2 < = 1.0 MG/DL Urine Leukocyte Esterase NEGATIVE NEGATIVE Urine RBC (Auto) NEGATIVE NEGATIVE Urine RBC 2-5 H /HPF Urine WBC 2-5 /HPF Urine Squamous Epithelial Cells 2-5 /HPF Urine Renal Epithelial Cells NONE /HPF Urine Crystals NONE /LPF Urine Bacteria MODERATE H /HPF Urine Casts NONE /LPF Urine Mucus SMALL H /LPF Urine Culture Indicated YES Micro Results Microbiology 08/30/21 Urine Culture - Final, Complete See Comments My Orders Orders - KASANDRA JONES Cbc With Automated Diff (08/30/21 13:56) Comprehensive Metabolic Panel (08/30/21 13:56) Ekg Tracing (08/30/21 13:56) Ua Culture If Indicated (08/30/21 13:56) Ct Head Wo (08/30/21 13:56) Meclizine Tablet (Antivert Tablet) (08/30/21 14:00) Ns Iv 1000 Ml (Sodium Chloride 0.9%) (08/30/21 13:56) Partial Thromboplastin Time (08/30/21 13:56) Protime With Inr (08/30/21 13:56) Metoclopramide Injection (Reglan Injecti (08/30/21 15:15) Mri Brain W/O Contrast (08/30/21 15:12) Ns Iv 1000 Ml (Sodium Chloride 0.9%) (08/30/21 15:23) Urine Culture (08/30/21 15:55) Medications Given in ED Vital Signs/I&O 08/30/21 08/30/21 12:50 16:38 Temp 36.3 36.3 Pulse 78 78 Resp 16 16 B/P (MAP) 103/74 (84) 125/72 Pulse Ox 98 98 O2 Delivery Room Air Room Air Capillary Refill : Less Than 3 Seconds Blood Pressure Mean: 84 Departure Communication (PCP) Patient presents to ED with dizziness bilateral blurry vision unsteady gait for the past 3 to 4 days. Appears to be worse with movement. Attempted Maricruz-Giraldo llpike patient became dizzy. I did note late developing nystagmus that relieved itself after 10 to 12 seconds. Appear to be more horizontal without any fixation. She did vomited once here. She initially was given meclizine and then dose of Reglan. No ear ringing, hearing loss, headache, fever. No meningeal signs. Lab work was otherwise unremarkable. Initial CT scan was unre markable. Due to the continuous symptoms before Reglan was given MRI was ordered rule out any peripheral lesion that may be associated. MRI was unremarkable. She did not start to get some improvement. She states she was feeling better after the nausea medication. No unilateral weakness or sensory changes facial droop, aphasia or dysarthria. Low risk for stroke. Recommend ENT outpatient follow-up for further evaluation. Will discharge with meclizine nausea medication. If any worsening symptoms return back to ED for further evaluation. Symptoms appear to be a form of vertigo. No ear ringing, hearing loss suggesting vestibular neuritis, Mnire's disease. Bilateral TMs were clear no evidence of otitis media. No recent URI. Patient does not appear toxic Impression Primary Impression: Dizziness Disposition: 01 HOME, SELF-CARE Condition: Stable Departure-Patient Inst. Decision time for Depature: 16:23 Referrals: BRODIE HANEY MD NO,LOCAL PHYSICIAN (PCP) Primary Care Physician Patient Instructions: Vertigo (a Type of Dizziness) (DC) Scripts Metoclopramide HCl (Metoclopramide HCl) 10 Mg Tablet 10 MG PO QID PRN for NAUSEA-1ST LINE, #12 TAB Prov: KASANDRA JONES 08/30/21 Meclizine HCl (Meclizine HCl) 25 Mg Tablet 25 MG PO Q6H PRN for DIZZINESS, #16 TAB Prov: KASANDRA JONES 08/30/21 Work/School Note: Work Release Form Date Seen in the Emergency Department: Aug 30, 2021 Return to Work: Sep 01, 2021 KASANDRA JONES Aug 30, 2021 14:14
[2021-08-30 14:29] LABS: BASOPHILS % (AUTO) 0 % (0-10); EOSINOPHILS # (AUTO) 0.1 10^3/uL (0.0-0.3); EOSINOPHILS % (AUTO) 1 % (0-10); HEMATOCRIT 43 % (35-52); HEMOGLOBIN 14.4 g/dL (11.5-16.0); LYMPHOCYTES # (AUTO) 2.7 10^3/uL (1.0-4.0); LYMPHOCYTES % (AUTO) 31 % (12-44); MEAN CORPUSCULAR HEMOGLOBIN 30 pg (25-34); MEAN CORPUSCULAR HGB CONC 34 g/dL (32-36); MEAN CORPUSCULAR VOLUME 88 fL (80-99); MEAN PLATELET VOLUME 10.5 fL (9.0-12.2); MONOCYTES # (AUTO) 0.5 10^3/uL (0.0-1.0); MONOCYTES % (AUTO) 5 % (0-12); NEUTROPHILS # (AUTO) 5.5 10^3/uL (1.8-7.8); NEUTROPHILS % (AUTO) 62 % (42-75); PLATELET COUNT 242 10^3/uL (130-400); WHITE BLOOD COUNT 8.8 10^3/uL (4.3-11.0)
[2021-08-30 14:49] LABS: ALBUMIN 4.3 GM/DL (3.2-4.5); BILIRUBIN,TOTAL 0.7 MG/DL (0.1-1.0); CALCIUM 9.1 MG/DL (8.5-10.1); CREATININE SERUM 0.69 MG/DL (0.60-1.30); POTASSIUM 3.8 MMOL/L (3.6-5.0); TOTAL PROTEIN 7.5 GM/DL (6.4-8.2)
[2021-08-30 14:53] LABS: PROTHROMBIN TIME PATIENT 13.2 SEC (12.2-14.7)
--- NOTE | 2021-08-30 15:04 | Diagnostic Imaging Report ---
PROCEDURE: CT head without contrast. TECHNIQUE: Multiple contiguous axial images were obtained through the brain without the use of intravenous contrast. Auto Exposure Controls were utilized during the CT exam to meet ALARA standards for radiation dose reduction. INDICATION: Headache, dizziness. COMPARISONS: None. FINDINGS: Midline structures are not displaced. Lateral, third, and fourth ventricles are normal in size, shape, and anatomic position. There is no mass, mass effect, hydrocephalus, or hemorrhage. Wen-white differentiation is normal. There is no sulcal effacement. There are no abnormal extra-axial fluid collections or hemorrhage. Basilar cisterns appear normal. Sinuses, orbits, and mastoid air cells are normal. Bone windows show no calvarial changes. IMPRESSION: Unremarkable nonenhanced CT brain. If symptoms warrant or persist, an MRI may be of further value. Dictated by: Dictated on workstation # [id number]
[2021-08-30] MEDS ORDERED: METOCLOPRAMIDE INJ 10 MG/2 ML (REGLAN) IVP ONE (15:15)
--- NOTE | 2021-08-30 16:09 | Diagnostic Imaging Report ---
PROCEDURE: MR imaging of the brain without contrast. TECHNIQUE: Multiplanar, multisequence MR imaging of the brain was performed without contrast. INDICATION: Visual disturbance and dizziness. FINDINGS: Ventricles and sulci are within normal limits for size. Wen and white matter signal intensities are unremarkable. There is no restricted diffusion to indicate an infarct. There is no abnormal mass effect or shift of midline structures. Mucous retention cyst or polyp is present within the left maxillary sinus. IMPRESSION: No acute abnormality is identified. Dictated by: Dictated on workstation # [id number]
[2021-08-30 16:10] LABS: BILIRUBIN,URINE NEGATIVE (NEGATIVE); CLARITY,URINE SL CLOUDY; COLOR,URINE YELLOW; GLUCOSE, URINE (UA) NEGATIVE (NEGATIVE); KETONES,URINE NEGATIVE (NEGATIVE); LEUKOCYTE ESTERASE ,URINE NEGATIVE (NEGATIVE); NITRITE,URINE NEGATIVE (NEGATIVE); PROTEIN,URINE NEGATIVE (NEGATIVE)
[2021-08-30 16:21] LABS: BACTERIA,URINE MODERATE /HPF
[2021-08-30] MEDS ORDERED: MECL-149 PO (16:26)
[2021-08-30] MEDS ORDERED: MTC10T PO (16:26)
[2021-08-30 16:38] VITALS: BP 125/72
== END 2021-08-30 16:38 | disposition home or self-care (01) ==
LOC: EDUNIT# 12:37 → ER 12:38
DX: R42 Dizziness and giddiness (principal)
CPT/HCPCS: 36415; 70450; 70551; 80053; 81000; 85025; 85610; 85730; 87088; 93005

== ENCOUNTER → 2022-02-17 | Outpatient (CLI) | payer BC ==
[~2022-02-17] MED LIST changes: +MECL-149 PO; +MTC10T PO
== END ==
LOC: LAB 11:33
PROVIDERS: ATTEND Nurse Practitioner Family
DX: Z32.01 Encounter for pregnancy test, result positive (principal); M54.50 Low back pain, unspecified
CPT/HCPCS: 36415; 84703